=== PATIENT | female | born 1930 | race African-American/Black ===

== ENCOUNTER 2016-08-23 15:22 | Inpatient (IN) | payer MEDICARE, MEDICAID ==
[~2016-08-23] VITALS: Ht 162.6 cm; Wt 72.6 kg
[~2016-08-23 15:22] MED LIST: AMLODIPINE BESY10 MG ORAL; ASPIR 8181 MG ORAL; ENALAPRIL MALEA10 MG ORAL; HYDRALAZINE HCL25 M1 ORAL
[2016-08-23 16:27] LABS: BASOPHILS % (AUTO) 0.4 % (0.0-2.0); EOSINOPHILS % (AUTO) 0.2 % (0.0-3.0); LYMPHOCYTES % (AUTO) 33.6 % (20.0-45.0); MEAN CORPUSCULAR HEMOGLOBIN 30.8 PG (27.0-31.0); MEAN CORPUSCULAR VOLUME 93 FL (80-99); MEAN PLATELET VOLUME 7.2 FL (6.5-10.1); MONOCYTES % (AUTO) 7.7 % (1.0-10.0); NEUTROPHILS % (AUTO) 58.1 % (45.0-75.0); PLATELET COUNT 113 K/UL (150-450); RED BLOOD COUNT 3.79 M/UL (4.20-5.40); RED CELL DISTRIBUTION WIDTH 14.9 % (11.6-14.8); WHITE BLOOD COUNT 5.1 K/UL (4.8-10.8)
[2016-08-23 16:27] LABS: APPEARANCE,URINE CLEAR; KETONES,URINE NEGATIVE (NEGATIVE); LEUKOCYTE ESTERASE ,URINE NEGATIVE (NEGATIVE); NITRITE,URINE NEGATIVE (NEGATIVE); PH,URINE 8 (4.5-8.0); PROTEIN,URINE NEGATIVE (NEGATIVE); UROBILINOGEN,URINE NORMAL MG/DL (0.0-1.0)
[2016-08-23 16:36] LABS: TROPONIN I < 0.30 ng/mL (<=0.30)
[2016-08-23 16:37] LABS: ALANINE AMINOTRANSFERASE 21 U/L (3-33); ALBUMIN/GLOBULIN RATIO 1.2 (1.0-2.7); ANION GAP 11 (5-15); ASPARTATE AMINO TRANSFERASE 26 U/L (5-40); CARBON DIOXIDE 30 mEQ/L (20-30); CHLORIDE 103 mEQ/L (98-107); CREATININE 1.1 mg/dL (0.5-0.9); HEMOLYSIS 5; POTASSIUM 5.4 mEQ/L (3.4-4.9); SODIUM 144 mEQ/L (135-145); TOTAL PROTEIN 7.5 g/dL (6.6-8.7)
[2016-08-23 16:45] VITALS: BP 145/60
[2016-08-23 16:46] LABS: CKMB 3.8 ng/mL (< 3.8)
[2016-08-23] MEDS ORDERED: Sodium Polystyrene Sulfonate 15gm Powder ORAL ONE (17:30)
[2016-08-23 18:36] VITALS: BP 133/61
--- NOTE | 2016-08-23 19:19 | Emergency Room Report ---
History of Present Illness General Chief Complaint: Generalized Weakness Source: Family Member Present Illness HPI 78-year-old female presents to ED for evaluation. Daughter is at bedside. States that patient has been feeling more lethargic and weak for the last 2 days. Patient was having episodes of shaking. Normally very active and energetic. Patient was seen at PMD office today and blood work was drawn. After taking patient home patient had no other episode of shaking and became lethargic. So.her brought patient to emergency room. Upon arrival state patient does seem more awake. Patient has history of dementia. No reported fevers or chills. no reported chest pain or shortness of breath. No other reported aggravating relieving factors. No other associated symptoms Allergies: Coded Allergies: No Known Allergies (Verified , 08/15/11) Patient History Past Medical History: DM, HTN, dementia Past Surgical History: none Pertinent Family History: none Social History: Denies: alcohol use, drug use, smoking Now: No Immunizations: UTD Reviewed Nursing Documentation: PMH: Agreed, PSxH: Agreed Nursing Documentation-PMH Hx Cardiac Problems: Yes Hx Hypertension: Yes Hx Diabetes: Yes - per daughter, have problems with high and low blood sugar Hx Cancer: No Hx Gastrointestinal Problems: Yes Hx Neurological Problems: Yes Hx Dementia: Yes Review of Systems All Other Systems: negative except mentioned in HPI Physical Exam Vital Signs Date Time Temp Pulse Resp B/P Pulse Ox O2 Delivery O2 Flow Rate FiO2 08/23/16 15:41 68 19 148/62 97 Room Air 08/23/16 16:45 92.5 Sp02 EP Interpretation: reviewed, normal General Appearance: GCS 15, non-toxic, lethargic, thin Head: normocephalic, atraumatic Eyes: bilateral eye PERRL, bilateral eye normal inspection ENT: hearing grossly normal, normal pharynx, no angioedema, normal voice Neck: full range of motion, supple/symm/no masses Respiratory: chest non-tender, lungs clear, normal breath sounds, speaking full sentences Cardiovascular #1: regular rate, rhythm, no edema Cardiovascular #2: 2+ carotid (R), 2+ carotid (L), 2+ radial (R), 2+ radial (L) , 2+ dorsalis pedis (R), 2+ dorsalis pedis (L) Gastrointestinal: normal bowel sounds, non tender, soft, non-distended, no guarding, no rebound Rectal: deferred Genitourinary: normal inspection, no CVA tenderness Musculoskeletal: back normal, gait/station normal, normal range of motion, non- tender, calf tenderness Neurologic: alert, motor strength/tone normal, sensory intact, speech normal, other - lethargic Psychiatric: other - lethargic Reflexes: 3+ bicep (R), 3+ bicep (L), 3+ tricep (R), 3+ tricep (L), 3+ knee (R) , 3+ knee (L) Skin: normal color, no rash, warm/dry, well hydrated Lymphatic: no adenopathy Medical Decision Making Diagnostic Impression: Primary Impression: Altered level of consciousness ER Course Hospital Course 86-year-old female presents ED with ALOC, shaking and tremors Differential diagnoses include: [place]/unstable angina, arrythmia, dehydration, CVA/ TIA, sepsis Clinical course Patient placed on 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 After initial history and physical I ordered labs, EKG, chest x-ray, IVFs, CT Brain labs reviewed- no leukocytosis, hemoglobin/hematocrit ok, K 5.4, troponins negative, UA negative EKG- NSR, no ischemic changes Chest x-ray- no acute process CT brain-unremarkable given kayexelate. Case discussed with Dr. Wyatt and he agreed to accept the patient to his service for further care and support I. I feel this is a highly complex case requiring extensive working including EKG/Rhythm strip, Xray/CT/US, Blood/urine lab work, repeat exams while in ED, and administration of strong opiates/narcotics for pain control, admission to hospital or close patient follow up. Diagnosis - ALOC admitted to floor in serious condition Labs Test 08/23/16 15:50 08/23/16 16:19 White Blood Count 5.1 K/UL (4.8-10.8) Red Blood Count 3.79 M/UL (4.20-5.40) Hemoglobin 11.7 G/DL (12.0-16.0) Hematocrit 35.4 % (37.0-47.0) Mean Corpuscular Volume 93 FL (80-99) Mean Corpuscular Hemoglobin 30.8 PG (27.0-31.0) Mean Corpuscular Hemoglobin Concent 33.0 G/DL (32.0-36.0) Red Cell Distribution Width 14.9 % (11.6-14.8) Platelet Count 113 K/UL (150-450) Mean Platelet Volume 7.2 FL (6.5-10.1) Neutrophils (%) (Auto) 58.1 % (45.0-75.0) Lymphocytes (%) (Auto) 33.6 % (20.0-45.0) Monocytes (%) (Auto) 7.7 % (1.0-10.0) Eosinophils (%) (Auto) 0.2 % (0.0-3.0) Basophils (%) (Auto) 0.4 % (0.0-2.0) Sodium Level 144 mEQ/L (135-145) Potassium Level 5.4 mEQ/L (3.4-4.9) Chloride Level 103 mEQ/L (98-107) Carbon Dioxide Level 30 mEQ/L (20-30) Anion Gap 11 (5-15) Blood Urea Nitrogen 36 mg/dL (7-23) Creatinine 1.1 mg/dL (0.5-0.9) Estimat Glomerular Filtration Rate mL/min (>60) Glucose Level 81 mg/dL (74-106) Lactic Acid Level 0.70 mmol/L (0.66-2.22) Calcium Level 10.0 mg/dL (8.6-10.2) Total Bilirubin 0.2 mg/dL (0.0-1.2) Aspartate Amino Transf (AST/SGOT) 26 U/L (5-40) Alanine Aminotransferase (ALT/SGPT) 21 U/L (3-33) Alkaline Phosphatase 87 U/L (35-104) Total Creatine Kinase 47 U/L (26-140) Creatine Kinase MB 3.8 ng/mL (< 3.8) Creatine Kinase MB Relative Index 8.0 Troponin I < 0.30 ng/mL (<=0.30) Total Protein 7.5 g/dL (6.6-8.7) Albumin 4.1 g/dL (3.5-5.2) Globulin 3.4 g/dL Albumin/Globulin Ratio 1.2 (1.0-2.7) Urine Color Yellow Urine Appearance Clear Urine pH 8 (4.5-8.0) Urine Specific [place] 1.010 (1.005-1.035) Urine Protein Negative (NEGATIVE) Urine Glucose (UA) Negative (NEGATIVE) Urine Ketones Negative (NEGATIVE) Urine Occult Blood Negative (NEGATIVE) Urine Nitrite Negative (NEGATIVE) Urine Bilirubin Negative (NEGATIVE) Urine Urobilinogen Normal MG/DL (0.0-1.0) Urine Leukocyte Esterase Negative (NEGATIVE) EKG Diagnostic Results Rate: normal Rhythm: NSR ST Segments: no acute changes ASA given to the pt in ED: No Rhythm Strip Diag. Results EP Interpretation: yes Rhythm: NSR, no PVC's, no ectopy Chest X-Ray Diagnostic Results EP Interpretation: Yes Findings: no consolidation, no effusion, no pneumothorax, no acute cardiopulmonary disease Number of Views: 1 CT/MRI/US Diagnostic Results CT/MRI/US Diagnostic Results : Imaging Test Ordered: CT head Impression no acute process Last Vital Signs Date Time Temp Pulse Resp B/P Pulse Ox O2 Delivery O2 Flow Rate FiO2 08/23/16 18:39 93.7 65 16 133/61 100 Room Air Status: improved Disposition: ADMITTED INPATIENT Condition: Serious Referrals: MARY ALICE WYATT (PCP) SEN SELBY M.D. Aug 23, 2016 19:19
[2016-08-23] MEDS ORDERED: Potassium Chloride 10 MEQ in D5 1/2NS 1,000 ML IV SCH (23:45)
[2016-08-24] VITALS: BP 121/66
--- NOTE | 2016-08-24 00:08 | Consultation ---
DATE OF CONSULTATION: 08/23/2016 CARDIOLOGY CONSULTATION: CONSULTING PHYSICIAN: Ravin Gilbert M.D. REQUESTING PHYSICIAN: Ion Yen M.D. REASON FOR CONSULTATION: Heart block. HISTORY OF PRESENT ILLNESS: This is an 86-year-old female, who was brought into the emergency room today after several days of worsening weakness and lethargy, episodic shaking, and labile blood glucose levels. The patient was seen at her PMD's office today and had blood work drawn. Her symptoms worsened and she was brought to the emergency room, where she was noticed to be severely hypothermic. She was admitted to the cardiac observation unit and subsequently had episodes of advanced heart block prompting staff to ask my benefits assistant with further management. PAST MEDICAL HISTORY: Type 2 diabetes mellitus, hypertension, cerebrovascular disease, and dementia. MEDICATIONS: Reviewed and reconciled. ALLERGIES: None known. FAMILY HISTORY: Noncontributory. SOCIAL HISTORY: Nonsmoker. No history of alcohol or substance abuse. REVIEW OF SYSTEMS: From the daughter and the records as follows. No fevers. No cough. No diarrhea. No nausea or vomiting. History of thyroid impairment. No history of seizures. She does have dementia. Her appetite has been quite poor . PHYSICAL EXAMINATION: GENERAL: Thin, frail, and withdrawn, but arousable. VITAL SIGNS: Temperature is 92.5 degrees, blood pressure 145/60, pulse 67, respiratory rate 14, and monitored strips with episodes of heart rates in the 30s and second-degree AV block progressing from [place]encke[place] . HEENT: Temporal wasting. Pale conjunctivae. Dry mucous membranes. NECK: Supple. LUNGS: Clear. CARDIAC: Regular rhythm. Slow rate. Normal S1 and S2. No appreciable murmur. ABDOMEN: Soft and nontender. EXTREMITIES: No edema. LABORATORY DATA: Urinalysis with no active sediment. White count is 5 and hemoglobin 11. Sodium is 144, potassium 5.4, bicarbonate 30, BUN 33, and creatinine 1.1. Lactic acid is 0.7. Troponin is negative and glucose 81. Albumin is 4.1. IMPRESSION: 1. Hypothermia. 2. Advanced heart block as described above. 3. Prerenal azotemia with acute on chronic renal insufficiency. 4. Mild hyperkalemia. 5. Mild dehydration and hypovolemia. 6. Anemia. PLAN: 1. Warming measures. 2. Cardiac monitoring. 3. Hold amlodipine. 4. Hydrate with hypotonic fluids. 5. Surveillance blood cultures. 6. Thyroid panel. 7. Cortisol level. 8. Metabolic profile. Ravin Gilbert M.D. DR: Jorge Luis JOB#: [id number] CC:
[2016-08-24] MEDS ORDERED: HydrALAZINE 25mg tab ORAL PRN (00:32)
[2016-08-24] MEDS: D5 1/2NS 1,000 ML IV SCH ×3 (00:50→16:48)
--- NOTE | 2016-08-24 01:48 | History and Physical Report ---
DATE OF ADMISSION: 08/23/2016 REASON FOR ADMISSION: Altered mental status. Possible seizure activity. HISTORY: The patient is an 86-year-old female with generalized weakness, overall with increasing restlessness. The patient's daughter had brought her in for laboratory work and urinary evaluation, although results were just done today the patient has been a little more lethargic for the past 2 days and also appeared to be a shaking episode. She is confused, but does have dementia. The patient apparently became more lethargic, more altered, and was brought into the emergency room, the daughter had brought her in a private car. No other associated symptoms. The patient is seen and evaluated in the emergency room. Workup thus far is fairly good. The patient has been fairly healthy overall. She has had routine followup and had been overall stable. PAST MEDICAL HISTORY: Notable for diabetes, hypertension, dementia. PAST SURGICAL HISTORY: None. FAMILY HISTORY: Otherwise noncontributory. SOCIAL HISTORY: Nonsmoker and nondrinker. Retired, unemployed, disabled. Lives with daughter who is the primary caregiver. REVIEW OF SYSTEMS: Difficult to obtain at this time. PHYSICAL EXAMINATION: Well-developed female appears to be slightly more withdrawn than prior VITAL SIGNS: Blood pressure 123/61, pulse 65, respirations 16, saturation 100%, temperature 93.7 HEENT: Fairly negative. Extraocular movements are grossly intact. Pupils are equal. NECK: Supple. No adenopathy. LUNGS: Good air entry. Symmetric. No rhonchi or wheezing. CARDIAC: S1 and S2. Regular rate and rhythm. Positive S4. No murmurs or rubs. ABDOMEN: Soft, nontender, and nondistended. EXTREMITIES: No cyanosis, clubbing or edema. NEUROLOGICAL: Appears to be grossly nonfocal. LABORATORY DATA: Reviewed. hematocrit 35, platelets of 113,000. Chemistries notable for potassium 5.4, BUN 36, creatinine 1.1. Liver enzymes are fairly normal. IMPRESSION: [id number] encephalopathy. Known history of dementia. Consider occult urinary tract infection, evidence of acute renal failure with evidence of hypokalemia and thrombocytopenia of unclear etiology. Possible seizure like activity. Unclear at this time. RECOMMENDATIONS: Admit. IV hydration. Follow up electrolytes. Follow up potassium. PT evaluation. Neurologic evaluation. Consider further assessment by MRI, CT of the brain was unremarkable. chest x-ray unremarkable. We will obtain neurological evaluation. Admit for monitoring and discuss with daughter and update and once we are through we will proceed with discharge planning. Srini Wyatt M.D. DR: IWONA JOB#: [id number] CC: PETER
[2016-08-24 04:00] VITALS: BP 122/61
[2016-08-24 07:08] LABS: BASOPHILS % (AUTO) 0.4 % (0.0-2.0); EOSINOPHILS % (AUTO) 0.1 % (0.0-3.0); LYMPHOCYTES % (AUTO) 18.2 % (20.0-45.0); MEAN CORPUSCULAR HEMOGLOBIN 29.8 PG (27.0-31.0); MEAN CORPUSCULAR HGB CONC 31.5 G/DL (32.0-36.0); MEAN CORPUSCULAR VOLUME 95 FL (80-99); MEAN PLATELET VOLUME 8.6 FL (6.5-10.1); MONOCYTES % (AUTO) 9.3 % (1.0-10.0); NEUTROPHILS % (AUTO) 71.9 % (45.0-75.0); PLATELET COUNT 117 K/UL (150-450); RED CELL DISTRIBUTION WIDTH 15.5 % (11.6-14.8)
[2016-08-24 07:45] LABS: ANION GAP 11 (5-15); CALCIUM 9.1 mg/dL (8.6-10.2); CARBON DIOXIDE 28 mEQ/L (20-30); CHLORIDE 106 mEQ/L (98-107); CREATININE 1.1 mg/dL (0.5-0.9); HEMOLYSIS 4; POTASSIUM 5.2 mEQ/L (3.4-4.9); SODIUM 145 mEQ/L (135-145)
--- NOTE | 2016-08-24 08:45 | Diagnostic Imaging Report ---
Indication: Altered mental status Technique: spiral acquisitions obtained through the brain. Angled axial and coronal 5 x 5 mm slices were reconstructed. No IV contrast utilized. Radiation dose was minimized using automated exposure control Total dose length product 1393 mGycm. CTDIvol(s) 70 mGy Comparison: 08/15/2011 FINDINGS: No acute hemorrhage or edema. No mass effect or midline shift. There is age-related enlargement of the ventricles and extra axial CSF spaces. There is periventricular deep white matter ischemic change. Normal adamson-white differentiation. There is a lacunar infarct in the left basal ganglia region again demonstrated. Visualized orbits are unremarkable. Visualized sinuses are unremarkable. Intact calvarium. No significant interim change. Empty sella described on recent MRI report is not evident on CT IMPRESSION: Chronic and age-related changes. Negative for acute intracranial bleed or mass effect This agrees with the preliminary interpretation provided overnight by Dr. De Santiago The CT scanner at [facility] is accredited by the [employer] and the scans are performed using protocols designed to limit radiation exposure to as low as reasonably achievable to attain images of sufficient resolution adequate for diagnostic evaluation
[2016-08-24] MEDS: Aspirin Baby 81mg ORAL SCH (09:00)
[2016-08-24] MEDS ORDERED: HydrALAZINE 25mg tab ORAL SCH (09:00)
[2016-08-24] MEDS ORDERED: LORazepam Inj 2mg/ml 1ml IV ONE (09:00)
--- NOTE | 2016-08-24 09:10 | General Progress Note ---
Assessment/Plan Assessment/Plan IMPRESSION: Xfxew-cx-[id number] encephalopathy. Known history of dementia. Consider occult urinary tract infection, evidence of acute renal failure with evidence of hypokalemia and thrombocytopenia of unclear etiology. Possible seizure like activity. hyperkalemia PLAN care noted follow up BMP Neuro and cards evaluation IV hydration follow up cultures PT and OT check MRI will monitor for change and stablization impression, plan, and exam edited and reviewed in detail care discussed with RN Subjective Allergies: Coded Allergies: No Known Allergies (Verified , 08/15/11) Subjective events overnight noted had been bradycardic Objective Last 24 Hour Vital Signs Date Time Temp Pulse Resp B/P Pulse Ox O2 Delivery O2 Flow Rate FiO2 08/24/16 04:00 99.0 90 20 122/61 95 Room Air 08/24/16 04:00 89 08/24/16 00:00 96.0 60 18 121/66 98 Room Air 08/24/16 00:00 53 08/23/16 20:00 68 08/23/16 18:39 93.7 65 16 133/61 100 Room Air 08/23/16 18:36 93.7 65 16 133/61 100 Room Air 08/23/16 16:45 92.5 67 14 145/60 98 Room Air 08/23/16 15:41 68 19 148/62 97 Room Air Intake and Output 08/23/16 08/24/16 19:00 07:00 Intake Total 2060 ml 850 ml Output Total 550 ml 1000 ml Balance 1510 ml -150 ml Intake Oral 60 ml IV Total 1000 ml 850 ml Other 1000 ml Output Urine Total 550 ml 1000 ml Laboratory Tests 08/23/16 15:50: White Blood Count 5.1, Red Blood Count 3.79L, Hemoglobin 11.7L, Hematocrit 35.4L , Mean Corpuscular Volume 93, Mean Corpuscular Hemoglobin 30.8, Mean Corpuscular Hemoglobin Concent 33.0, Red Cell Distribution Width 14.9H, Platelet Count 113L, Mean Platelet Volume 7.2, Neutrophils (%) (Auto) 58.1, Lymphocytes (%) (Auto) 33.6, Monocytes (%) (Auto) 7.7, Eosinophils (%) (Auto) 0.2, Basophils (%) (Auto) 0.4, Sodium Level 144, Potassium Level 5.4H, Chloride Level 103, Carbon Dioxide Level 30, Anion Gap 11, Blood Urea Nitrogen 36H, Creatinine 1.1H, Estimat Glomerular Filtration Rate , Glucose Level 81, Lactic Acid Level 0.70, Calcium Level 10.0, Total Bilirubin 0.2, Aspartate Amino Transf (AST/SGOT) 26, Alanine Aminotransferase (ALT/SGPT) 21, Alkaline Phosphatase 87, Total Creatine Kinase 47, Creatine Kinase MB 3.8, Creatine Kinase MB Relative Index 8.0, Troponin I < 0.30, Total Protein 7.5, Albumin 4.1 , Globulin 3.4, Albumin/Globulin Ratio 1.2 08/23/16 16:19: Urine Color Yellow, Urine Appearance Clear, Urine pH 8, Urine Specific [place] 1.010, Urine Protein Negative, Urine Glucose (UA) Negative, Urine Ketones Negative, Urine Occult Blood Negative, Urine Nitrite Negative, Urine Bilirubin Negative, Urine Urobilinogen Normal, Urine Leukocyte Esterase Negative 08/24/16 05:25: White Blood Count 5.0, Red Blood Count 3.40L, Hemoglobin 10.1L, Hematocrit 32.1L , Mean Corpuscular Volume 95, Mean Corpuscular Hemoglobin 29.8, Mean Corpuscular Hemoglobin Concent 31.5L, Red Cell Distribution Width 15.5H, Platelet Count 117L, Mean Platelet Volume 8.6, Neutrophils (%) (Auto) 71.9, Lymphocytes (%) (Auto) 18.2L, Monocytes (%) (Auto) 9.3, Eosinophils (%) (Auto) 0.1, Basophils (%) (Auto) 0.4, Sodium Level 145, Potassium Level 5.2H, Chloride Level 106, Carbon Dioxide Level 28, Anion Gap 11, Blood Urea Nitrogen 32H, Creatinine 1.1H, Estimat Glomerular Filtration Rate , Glucose Level 84, Calcium Level 9.1, Vitamin B12 Level 859, Folate [Pending], Thyroid Stimulating Hormone (TSH) 2.650, Cortisol [Pending] Height (Feet): 5 Height (Inches): 4.00 Weight (Pounds): 160 Objective PHYSICAL EXAMINATION: Well-developed female agitated HEENT: Fairly negative. Extraocular movements are grossly intact. Pupils are equal. NECK: Supple. No adenopathy. LUNGS: Good air entry. Symmetric. No rhonchi or wheezing. CARDIAC: S1 and S2. Regular rhythm. Positive S4. No murmurs or rubs. slightly bradycardic ABDOMEN: Soft, nontender, and nondistended. no HSM EXTREMITIES: No cyanosis, clubbing or edema. NEUROLOGICAL: Appears to be grossly nonfocal. but confused MARY ALICE ESPINO Aug 24, 2016 09:10
[2016-08-24] MEDS: Heparin 5000 units/ml inj SUBQ SCH ×2 (09:58→20:17)
--- NOTE | 2016-08-24 10:04 | Diagnostic Imaging Report ---
Indication: Altered mental status Technique: One view of the chest Comparison: 07/05/2016 Findings: Lungs and pleural spaces are clear. Heart size is normal. Aorta is tortuous Impression: No acute process This agrees with the preliminary interpretation provided by the emergency room physician
--- NOTE | 2016-08-24 10:21 | Neurology Progress Note ---
Objective Physical Exam Last Vital Signs Date Time Temp Pulse Resp B/P Pulse Ox O2 Delivery O2 Flow Rate FiO2 08/24/16 08:00 79 08/24/16 04:00 99.0 20 122/61 95 Room Air Laboratory Tests Test 08/23/16 15:50 08/23/16 16:19 08/24/16 05:25 White Blood Count 5.1 K/UL (4.8-10.8) 5.0 K/UL (4.8-10.8) Red Blood Count 3.79 M/UL (4.20-5.40) L 3.40 M/UL (4.20-5.40) L Hemoglobin 11.7 G/DL (12.0-16.0) L 10.1 G/DL (12.0-16.0) L Hematocrit 35.4 % (37.0-47.0) L 32.1 % (37.0-47.0) L Mean Corpuscular Volume 93 FL (80-99) 95 FL (80-99) Mean Corpuscular Hemoglobin 30.8 PG (27.0-31.0) 29.8 PG (27.0-31.0) Mean Corpuscular Hemoglobin Concent 33.0 G/DL (32.0-36.0) 31.5 G/DL (32.0-36.0) L Red Cell Distribution Width 14.9 % (11.6-14.8) H 15.5 % (11.6-14.8) H Platelet Count 113 K/UL (150-450) L 117 K/UL (150-450) L Mean Platelet Volume 7.2 FL (6.5-10.1) 8.6 FL (6.5-10.1) Neutrophils (%) (Auto) 58.1 % (45.0-75.0) 71.9 % (45.0-75.0) Lymphocytes (%) (Auto) 33.6 % (20.0-45.0) 18.2 % (20.0-45.0) L Monocytes (%) (Auto) 7.7 % (1.0-10.0) 9.3 % (1.0-10.0) Eosinophils (%) (Auto) 0.2 % (0.0-3.0) 0.1 % (0.0-3.0) Basophils (%) (Auto) 0.4 % (0.0-2.0) 0.4 % (0.0-2.0) Sodium Level 144 mEQ/L (135-145) 145 mEQ/L (135-145) Potassium Level 5.4 mEQ/L (3.4-4.9) H 5.2 mEQ/L (3.4-4.9) H Chloride Level 103 mEQ/L (98-107) 106 mEQ/L (98-107) Carbon Dioxide Level 30 mEQ/L (20-30) 28 mEQ/L (20-30) Anion Gap 11 (5-15) 11 (5-15) Blood Urea Nitrogen 36 mg/dL (7-23) H 32 mg/dL (7-23) H Creatinine 1.1 mg/dL (0.5-0.9) H 1.1 mg/dL (0.5-0.9) H Estimat Glomerular Filtration Rate mL/min (>60) mL/min (>60) Glucose Level 81 mg/dL (74-106) 84 mg/dL (74-106) Lactic Acid Level 0.70 mmol/L (0.66-2.22) Calcium Level 10.0 mg/dL (8.6-10.2) 9.1 mg/dL (8.6-10.2) Total Bilirubin 0.2 mg/dL (0.0-1.2) Aspartate Amino Transf (AST/SGOT) 26 U/L (5-40) Alanine Aminotransferase (ALT/SGPT) 21 U/L (3-33) Alkaline Phosphatase 87 U/L (35-104) Total Creatine Kinase 47 U/L (26-140) Creatine Kinase MB 3.8 ng/mL (< 3.8) Creatine Kinase MB Relative Index 8.0 Troponin I < 0.30 ng/mL (<=0.30) Total Protein 7.5 g/dL (6.6-8.7) Albumin 4.1 g/dL (3.5-5.2) Globulin 3.4 g/dL Albumin/Globulin Ratio 1.2 (1.0-2.7) Urine Color Yellow Urine Appearance Clear Urine pH 8 (4.5-8.0) Urine Specific [place] 1.010 (1.005-1.035) Urine Protein Negative (NEGATIVE) Urine Glucose (UA) Negative (NEGATIVE) Urine Ketones Negative (NEGATIVE) Urine Occult Blood Negative (NEGATIVE) Urine Nitrite Negative (NEGATIVE) Urine Bilirubin Negative (NEGATIVE) Urine Urobilinogen Normal MG/DL (0.0-1.0) Urine Leukocyte Esterase Negative (NEGATIVE) Vitamin B12 Level 859 pg/mL (211-946) Folate Pending Thyroid Stimulating Hormone (TSH) 2.650 uIU/mL (0.300-4.500) Cortisol Pending Impression/Recommendations Problems: (1) r/o seizure activity Recommendations # [id number] OLEGARIO BAUMAN Aug 24, 2016 10:21
[2016-08-24 10:30] VITALS: BP 142/65
--- NOTE | 2016-08-24 10:49 | Diagnostic Imaging Report ---
Indication: Altered mental status Technique: sagittal T1 FLAIR PROPELLER axial T2 FLAIR PROPELLER axial diffusion weighted images. ADC and exponential ADC maps generated Comparison: CT brain 08/23/2016, MRI dated 08/06/2015 Findings:Exam is very limited. Patient unable to stay still despite sedation, only 3 sequences could be acquired. Available images are limited by motion artifact No abnormal areas of restricted diffusion to suggest acute infarction, although evaluation of the left temporal lobe is limited due to motion artifact. No gross acute hemorrhage or edema. No mass effect nor midline shift. There is age-related enlargement of the ventricles and extra axial CSF spaces. Visualized orbits and sinuses are unremarkable. Impression: Very limited, essentially nondiagnostic exam, as described No gross acute intracranial bleed, mass effect, or infarct Age-related cerebral volume loss, also previously reported
[2016-08-24 12:00] VITALS: BP 140/62
[2016-08-24 16:00] VITALS: BP 152/72
--- NOTE | 2016-08-24 16:48 | Consultation ---
DATE OF CONSULTATION: 08/24/2016 NEUROLOGICAL CONSULTATION CONSULTING PHYSICIAN: Ihsan Muñoz M.D. REQUESTING PHYSICIAN: Sirni Wyatt M.D. HISTORY OF PRESENT ILLNESS: The patient is an 86-year-old female, seen in neurological consultation with new onset of changes in mental status as well as episodes of generalized tremors. The patient was brought from home where for the last couple of days, she was increasingly lethargic with generalized weakness and episodes of shaking. It was reported that prior to current events, the patient was actually quite active and "energetic." The patient was brought to emergency room, noticed she was more awake than previously. Her vital signs included blood pressure is 148/62 and temperature 92.5 degrees, and heart rate of 68. The [place] Coma Scale was 15. Her initial vital signs remained stable with hypothermia and heart rate of 153. Laboratory work was obtained, revealed CBC study with hemoglobin 11.7, hematocrit 35.4, and platelets 113,000. Chemistry panel with BUN of 36, creatinine 1.1, and potassium 5.4. Normal B12, TSH, and troponin. Normal calcium level and lactic acid. Urinalysis was negative. Imaging studies were obtained revealing no acute process. CT scan of the brain, chronic age related changes, but no acute event, no mass effect, and no midline shift. This study was compared with the previous from 2011 with no changes noted. Since admission to present, her condition remained unchanged. PAST MEDICAL HISTORY: The patient has a history of hypertension and poorly controlled diabetes with fluctuating blood sugars. MEDICATIONS: She is on hydralazine, enalapril, aspirin, and amlodipine. ALLERGIES: None reported. The patient has a history of dementia. SOCIAL HISTORY: Lives with her family. There is no evidence of alcohol or drug abuse. Nonsmoker. FAMILY HISTORY: Noncontributory. REVIEW OF SYSTEMS: Unable to obtain due the patient's status, who is now very lethargic. PHYSICAL EXAMINATION: GENERAL: A well-developed, well-nourished female, lying comfortably in bed asleep. She was recently sedated with Ativan prior to having MRI of the brain. VITAL SIGNS: Now stable. Temperature 99.0 and blood pressure 122/61. HEENT: Head is normocephalic. No evidence of trauma. Eyes, ears, and throat are clear. NECK: Slightly rigid in all directions. MUSCULOSKELETAL: Puffiness in both lower extremities and both ankles. PERIPHERAL PULSES: 1+ and symmetric. MENTAL STATUS: The patient is arousable on vigorous stimulation, briefly opens eyes, able to follow few simple commands, but responding very slow and deliberate. CRANIAL NERVES: Cranial Nerve II: Pupils both responding to light and accommodation. Extraocular movements full range. CRANIAL NERVE V: Normal corneal responses. CRANIAL NERVE VII: No facial asymmetry. CRANIAL NERVE VIII: Slight decrease in hearing. CRANIAL NERVE IX THROUGH XII: Tongue is midline. Symmetric palate elevation. Motor Examination: Diffuse rigidity, but able to lift arms and legs against the gravity. Able to proceed with the [id number] testing. DEEP TENDON REFLEXES: 1+ and symmetric. Plantar response is mute. SENSORY EXAMINATION: Withdrawing to pin stimulation all limbs. Gait not tested. The patient was unable sit or stand on her own. IMPRESSION: This is an 86-year-old female with: 1. New onset of lethargic state and intermittent tremors, rule out nonconvulsive status and rule out sepsis. 2. Hypertension. 3. Diabetes type 2. 4. History of senile dementia. RECOMMENDATION: 1. Check MRI of the brain. 2. Electroencephalogram. 3. Observe for any paroxysmal events. 4. Continue aspirin. 5. Check lipid panel, GINI, and sed rate. 6. Continue with proper hydration. Thank you for allowing me to see this interesting patient in neurological consultation. Ihsan Muñoz M.D. DR: Rika JOB#: [id number] CC:
[2016-08-25] VITALS: BP 155/83
[2016-08-25] MEDS: D5 1/2NS 1,000 ML IV SCH ×3 (01:19→16:06)
--- NOTE | 2016-08-25 01:19 | Progress Note ---
DATE: 08/24/2016 CARDIOLOGY PROGRESS NOTE SUBJECTIVE: The patient had second-degree heart block last night. She was hypothermic. She has been on a [employer] heating blanket system since. Monitored rhythm is now sinus with first-degree AV block. No pauses. The patient remains withdrawn and lethargic. OBJECTIVE: VITAL SIGNS: Temperature earlier was 92.5 and now 99 degrees, blood pressure 122/61, pulse 90, respirations 20, and oxygen saturation on room air 95%. GENERAL: Withdrawn but responsive. LUNGS: Bilateral breath sounds. HEART: Regular rhythm and rate. Normal S1, S2. ABDOMEN: Soft. EXTREMITIES: No edema. Diffusely rigid. Follows simple commands only. LABORATORY DATA: White count 5 and hemoglobin 10. Potassium 5.3, BUN 32, and creatinine 1.1. Vitamin B12 and TSH levels were normal. IMPRESSION: 1. Toxic and metabolic encephalopathy. 2. Hypothermia, resolving. 3. Second-degree heart block with at times 2:1 conduction, now resolving. 4. Hypertensive heart disease. 5. Hypovolemia. 6. Dehydration. 7. Prerenal azotemia. PLAN: 1. Continued hydration. 2. Adjust warming blanket as needed. 3. Imaging studies of the brain. 4. Continue to hold most of patient's antihypertensives and resume in a stepwise fashion based on clinical parameters. Ravin Gilbert M.D. DR: ALEJANDRO JOB#: [id number] CC:
[2016-08-25 04:00] VITALS: BP 156/70
[2016-08-25 07:47] LABS: ANION GAP 15 (5-15); CALCIUM 9.5 mg/dL (8.6-10.2); CARBON DIOXIDE 25 mEQ/L (20-30); CHLORIDE 105 mEQ/L (98-107); CREATININE 0.8 mg/dL (0.5-0.9); HEMOLYSIS 6; POTASSIUM 4.1 mEQ/L (3.4-4.9); SODIUM 145 mEQ/L (135-145)
[2016-08-25 08:03] VITALS: BP 147/70
[2016-08-25 08:08] LABS: CORTISOL LC 19.1 ug/dL (.)
[2016-08-25] MEDS: Aspirin Baby 81mg ORAL SCH (08:47)
[2016-08-25] MEDS: Heparin 5000 units/ml inj SUBQ SCH ×2 (08:48→20:24)
[2016-08-25 12:10] VITALS: BP 122/60
--- NOTE | 2016-08-25 16:01 | General Progress Note ---
Assessment/Plan Assessment/Plan IMPRESSION: [id number] encephalopathy. Known history of dementia. Consider occult urinary tract infection, evidence of acute renal failure with evidence of hypokalemia and thrombocytopenia of unclear etiology. Possible seizure like activity. hyperkalemia PLAN care noted follow up labs noted Neuro and cards evaluation noted IV hydration follow up cultures PT and OT reviewed MRI will monitor for change and stablization impression, plan, and exam edited and reviewed in detail care discussed with RN Subjective Allergies: Coded Allergies: No Known Allergies (Verified , 08/15/11) Subjective events overnight noted had been bradycardic no recurrent sz activity all appreciated Objective Last 24 Hour Vital Signs Date Time Temp Pulse Resp B/P Pulse Ox O2 Delivery O2 Flow Rate FiO2 08/25/16 12:10 97.0 60 20 122/60 98 Room Air 08/25/16 08:47 147/70 08/25/16 08:03 97.0 67 20 147/70 98 Room Air 08/25/16 08:00 66 08/25/16 04:00 73 08/25/16 04:00 97.6 71 20 156/70 97 Room Air 08/25/16 00:00 76 08/25/16 00:00 97.0 76 20 155/83 97 Room Air 08/24/16 20:00 70 08/24/16 16:00 65 08/24/16 16:00 96.1 69 18 152/72 97 Room Air Intake and Output 08/24/16 08/25/16 19:00 07:00 Intake Total 807 ml 1287.5 ml Output Total 1200 ml 1400 ml Balance -393 ml -112.5 ml Intake Oral 120 ml IV Total 687 ml 1287.5 ml Output Urine Total 1200 ml 1400 ml Laboratory Tests 08/25/16 05:10: Sodium Level 145, Potassium Level 4.1, Chloride Level 105, Carbon Dioxide Level 25, Anion Gap 15, Blood Urea Nitrogen 15, Creatinine 0.8, Estimat Glomerular Filtration Rate , Glucose Level 96, Calcium Level 9.5 Height (Feet): 5 Height (Inches): 4.00 Weight (Pounds): 160 Objective PHYSICAL EXAMINATION: Well-developed female agitated HEENT: Fairly negative. Extraocular movements are grossly intact. Pupils are equal. NECK: Supple. No adenopathy. LUNGS: Good air entry. Symmetric. No rhonchi or wheezing. CARDIAC: S1 and S2. Regular rhythm. Positive S4. No murmurs or rubs. not bradycardic ABDOMEN: Soft, nontender, and nondistended. no HSM EXTREMITIES: No cyanosis, clubbing or edema. NEUROLOGICAL: Appears to be grossly nonfocal. but confused MARY ALICE ESPINO Aug 25, 2016 16:01
[2016-08-25 16:19] VITALS: BP 142/78
[2016-08-25] MEDS ORDERED: D5 1/2NS 1000ml IV ONE (16:45)
[2016-08-25] MEDS ORDERED: 1/2 NS 1000ml IV ONE (16:45)
[2016-08-25 20:00] VITALS: BP 125/61
[2016-08-26] VITALS: BP 151/71
[2016-08-26] MEDS: D5 1/2NS 1,000 ML IV SCH ×3 (01:00→14:37)
[2016-08-26 04:30] VITALS: BP 153/69
--- NOTE | 2016-08-26 08:01 | General Progress Note ---
Assessment/Plan Assessment/Plan IMPRESSION: Tkazp-[id number]-[id number] encephalopathy. Known history of dementia. cultures negative, evidence of acute renal failure, thrombocytopenia of unclear etiology. Possible seizure like activity. PLAN care noted follow up labs today Neuro and cards evaluation noted IV hydration follow up cultures PT and OT discuss with daughter and proceed with dc planning impression, plan, and exam edited and reviewed in detail care discussed with RN Subjective Allergies: Coded Allergies: No Known Allergies (Verified , 08/15/11) Subjective events overnight noted stable overall no distress Objective Last 24 Hour Vital Signs Date Time Temp Pulse Resp B/P Pulse Ox O2 Delivery O2 Flow Rate FiO2 08/26/16 04:30 97.2 74 20 153/69 94 08/26/16 04:00 76 08/26/16 00:00 79 08/26/16 00:00 97.3 80 20 151/71 99 Room Air 08/25/16 20:00 96.4 64 20 125/61 97 08/25/16 20:00 69 08/25/16 16:19 96.1 68 20 142/78 98 Room Air 08/25/16 16:00 72 08/25/16 12:10 97.0 60 20 122/60 98 Room Air 08/25/16 08:47 147/70 08/25/16 08:03 97.0 67 20 147/70 98 Room Air 08/25/16 08:00 66 Intake and Output 08/25/16 08/26/16 19:00 07:00 Intake Total 1672.5 ml 1550.0 ml Output Total 800 ml 2700 ml Balance 872.5 ml -1150.0 ml Intake Oral 360 ml IV Total 1312.5 ml 1550.0 ml Output Urine Total 800 ml 2700 ml # Bowel Movements 1 Labs Test 08/23/16 15:50 08/23/16 16:19 08/24/16 05:25 08/25/16 05:10 White Blood Count 5.1 K/UL (4.8-10.8) 5.0 K/UL (4.8-10.8) Red Blood Count 3.79 M/UL (4.20-5.40) 3.40 M/UL (4.20-5.40) Hemoglobin 11.7 G/DL (12.0-16.0) 10.1 G/DL (12.0-16.0) Hematocrit 35.4 % (37.0-47.0) 32.1 % (37.0-47.0) Mean Corpuscular Volume 93 FL (80-99) 95 FL (80-99) Mean Corpuscular Hemoglobin 30.8 PG (27.0-31.0) 29.8 PG (27.0-31.0) Mean Corpuscular Hemoglobin Concent 33.0 G/DL (32.0-36.0) 31.5 G/DL (32.0-36.0) Red Cell Distribution Width 14.9 % (11.6-14.8) 15.5 % (11.6-14.8) Platelet Count 113 K/UL (150-450) 117 K/UL (150-450) Mean Platelet Volume 7.2 FL (6.5-10.1) 8.6 FL (6.5-10.1) Neutrophils (%) (Auto) 58.1 % (45.0-75.0) 71.9 % (45.0-75.0) Lymphocytes (%) (Auto) 33.6 % (20.0-45.0) 18.2 % (20.0-45.0) Monocytes (%) (Auto) 7.7 % (1.0-10.0) 9.3 % (1.0-10.0) Eosinophils (%) (Auto) 0.2 % (0.0-3.0) 0.1 % (0.0-3.0) Basophils (%) (Auto) 0.4 % (0.0-2.0) 0.4 % (0.0-2.0) Sodium Level 144 mEQ/L (135-145) 145 mEQ/L (135-145) 145 mEQ/L (135-145) Potassium Level 5.4 mEQ/L (3.4-4.9) 5.2 mEQ/L (3.4-4.9) 4.1 mEQ/L (3.4-4.9) Chloride Level 103 mEQ/L (98-107) 106 mEQ/L (98-107) 105 mEQ/L (98-107) Carbon Dioxide Level 30 mEQ/L (20-30) 28 mEQ/L (20-30) 25 mEQ/L (20-30) Anion Gap 11 (5-15) 11 (5-15) 15 (5-15) Blood Urea Nitrogen 36 mg/dL (7-23) 32 mg/dL (7-23) 15 mg/dL (7-23) Creatinine 1.1 mg/dL (0.5-0.9) 1.1 mg/dL (0.5-0.9) 0.8 mg/dL (0.5-0.9) Estimat Glomerular Filtration Rate mL/min (>60) mL/min (>60) mL/min (>60) Glucose Level 81 mg/dL (74-106) 84 mg/dL (74-106) 96 mg/dL (74-106) Lactic Acid Level 0.70 mmol/L (0.66-2.22) Calcium Level 10.0 mg/dL (8.6-10.2) 9.1 mg/dL (8.6-10.2) 9.5 mg/dL (8.6-10.2) Total Bilirubin 0.2 mg/dL (0.0-1.2) Aspartate Amino Transf (AST/SGOT) 26 U/L (5-40) Alanine Aminotransferase (ALT/SGPT) 21 U/L (3-33) Alkaline Phosphatase 87 U/L (35-104) Total Creatine Kinase 47 U/L (26-140) Creatine Kinase MB 3.8 ng/mL (< 3.8) Creatine Kinase MB Relative Index 8.0 Troponin I < 0.30 ng/mL (<=0.30) Total Protein 7.5 g/dL (6.6-8.7) Albumin 4.1 g/dL (3.5-5.2) Globulin 3.4 g/dL Albumin/Globulin Ratio 1.2 (1.0-2.7) Urine Color Yellow Urine Appearance Clear Urine pH 8 (4.5-8.0) Urine Specific Scott 1.010 (1.005-1.035) Urine Protein Negative (NEGATIVE) Urine Glucose (UA) Negative (NEGATIVE) Urine Ketones Negative (NEGATIVE) Urine Occult Blood Negative (NEGATIVE) Urine Nitrite Negative (NEGATIVE) Urine Bilirubin Negative (NEGATIVE) Urine Urobilinogen Normal MG/DL (0.0-1.0) Urine Leukocyte Esterase Negative (NEGATIVE) Vitamin B12 Level 859 pg/mL (211-946) Folate 18.3 ng/mL (>3.0) Thyroid Stimulating Hormone (TSH) 2.650 uIU/mL (0.300-4.500) Cortisol 19.1 ug/dL (.) Height (Feet): 5 Height (Inches): 4.00 Weight (Pounds): 160 Objective PHYSICAL EXAMINATION: Well-developed female calm confused HEENT: Fairly negative. Extraocular movements are grossly intact. Pupils are equal. NECK: Supple. No adenopathy. LUNGS: Good air entry. Symmetric. No rhonchi or wheezing. CARDIAC: S1 and S2. Regular rhythm. Positive S4. No murmurs or rubs. no longer bradycardic ABDOMEN: Soft, nontender, and nondistended. no HSM EXTREMITIES: No cyanosis, clubbing or edema. NEUROLOGICAL: Appears to be grossly nonfocal. but confused and with some disorientation MARY ALICE ESPINO Aug 26, 2016 08:01
[2016-08-26 08:07] VITALS: BP 158/90
[2016-08-26] MEDS: Aspirin Baby 81mg ORAL SCH (08:38)
[2016-08-26] MEDS: Heparin 5000 units/ml inj SUBQ SCH ×2 (08:39→21:00)
[2016-08-26 09:47] LABS: BASOPHILS % (AUTO) 0.2 % (0.0-2.0); EOSINOPHILS % (AUTO) 0.6 % (0.0-3.0); LYMPHOCYTES % (AUTO) 22.4 % (20.0-45.0); MEAN CORPUSCULAR HEMOGLOBIN 29.7 PG (27.0-31.0); MEAN CORPUSCULAR HGB CONC 31.8 G/DL (32.0-36.0); MEAN CORPUSCULAR VOLUME 94 FL (80-99); MEAN PLATELET VOLUME 7.8 FL (6.5-10.1); MONOCYTES % (AUTO) 10.5 % (1.0-10.0); NEUTROPHILS % (AUTO) 66.2 % (45.0-75.0); PLATELET COUNT 127 K/UL (150-450); RED BLOOD COUNT 3.51 M/UL (4.20-5.40); RED CELL DISTRIBUTION WIDTH 15.3 % (11.6-14.8)
[2016-08-26 10:07] LABS: ANION GAP 15 (5-15); CALCIUM 9.3 mg/dL (8.6-10.2); CARBON DIOXIDE 25 mEQ/L (20-30); CHLORIDE 103 mEQ/L (98-107); CREATININE 0.9 mg/dL (0.5-0.9); HEMOLYSIS 2; POTASSIUM 3.4 mEQ/L (3.4-4.9); SODIUM 143 mEQ/L (135-145)
[2016-08-26 11:29] VITALS: BP 143/70
[2016-08-26 16:32] VITALS: BP 148/86
[2016-08-26 20:00] VITALS: BP 147/67
--- NOTE | 2016-08-26 22:19 | Electroencephalogram ---
DATE OF PROCEDURE: 08/24/2016 ELECTROENCEPHALOGRAPHY REPORT REQUESTING PHYSICIAN: Srini Wyatt M.D. HISTORY: The patient is an 86-year-old female with acute change in mental status, now presenting with intermittent tremors in her upper extremities, suspected to have seizure activities, currently, treated with Vasotec and Norvasc. TECHNIQUE: EEG was done using 18 electrodes placed scalp to scalp, scalp to ear montages according to 10/20 International System. During the recording, the patient described as awake or drowsy, but fairly cooperative. Most wakeful portions of recording, background activity consists of low to medium voltage, somewhat low voltage, mixture of 7-8 cycles per second, alpha activity with intermittent with slower theta range activities. No asymmetry from side to side. No spike or wave activities noted. Tremors noted with no electrographic correlation. As recording progressed, the patient become more drowsy with appearance of persistent bilateral theta range activities 6-8 cycles bilaterally. IMPRESSION: Mildly abnormal electroencephalogram in the presence of diffuse slowing. COMMENT: Absence of paroxysmal activities does not rule out seizure disorder, noticed above abnormality exceeds normal slowing in this age group. This may indicate a toxic or metabolic derangement. Ihsan Muñoz M.D. DR: ALONSO JOB#: [id number] CC:
[2016-08-26] MEDS ORDERED: D5 1/2NS 1000ml IV ONE (22:29)
--- NOTE | 2016-08-26 23:00 | Progress Note ---
DATE: 08/25/2016 Cardiology progress note SUBJECTIVE: The patient remains withdrawn and lethargic. Body temperature now stable at 97. Monitored rhythm sinus with no alberto arrhythmias or AV block noted. OBJECTIVE: VITAL SIGNS: Blood pressure 122/60, pulse 60, and respirations 20. NECK: Supple. Dry mucous membranes. LUNGS: Clear. CARDIAC: Regular rhythm rate. Normal S1 and S2 with a fourth heart sound. ABDOMEN: Soft. EXTREMITIES: Reveal no edema or cords. LABORATORY DATA: The blood cultures remain negative. Sodium 145, potassium 4.1, bicarbonate 25, BUN 15, and creatinine 0.8. IMPRESSION: Hypothermia, recovered. Normal cortisol level is normal. Normal thyroid function. Normal B12 folate levels. Cerebrovascular disease with baseline dementia. Advanced AV block, transient and precipitated by severe hypothermia, now resolved. PLAN: 1. Monitor temperature. Await results of Infectious Disease workup. Maintain adequate hydration. 2. For tighter blood pressure control at this time. 3. DVT prophylaxis. Ravin Gilbert M.D. DR: GABRIEL JOB#: [id number] CC:
--- NOTE | 2016-08-26 23:49 | Progress Note ---
DATE: 08/26/2016 CARDIOLOGY PROGRESS NOTE SUBJECTIVE: Now no acute distress. No events overnight. Monitored rhythm sinus. Temperature maintaining at 96.1 to 97.3. PHYSICAL EXAMINATION: VITAL SIGNS: Blood pressure 152/69, pulse 74, respiratory rate 20. Monitored rhythm, sinus. No alberto arrhythmias. LUNGS: Clear. CARDIAC: Regular. Normal S1 and S2. ABDOMEN: Soft. EXTREMITIES: No edema. LABORATORY DATA: Blood cultures negative up to date. Sodium 143, potassium 3.4, bicarbonate 25, BUN 17, and creatinine 0.9. White count 5, hemoglobin 10.4, and platelets 127, 000. IMPRESSION: 1. Hypothermic, resolved. Advanced AV block, recovered and precipitated by severe hypothermia. 2. Hypertensive heart disease with controlled blood pressure. 3. Anemia of chronic disease. 4. Hypovolemia and dehydration corrected. No signs of fever or sepsis. PLAN: 1. Maintain adequate hydration. 2. Continue with current cardiovascular regimen. 3. DVT prophylaxis. 4. Monitor temperature. No indication for pacemaker. Ravin Gilbert M.D. DR: GABRIEL JOB#: [id number] CC:
[2016-08-27] VITALS: BP 140/73
[2016-08-27] MEDS: D5 1/2NS 1,000 ML IV SCH ×2 (02:00→08:26)
[2016-08-27 04:07] VITALS: BP 141/73
[2016-08-27 08:00] VITALS: BP 152/95
[2016-08-27] MEDS: Aspirin Baby 81mg ORAL SCH (08:16)
[2016-08-27] MEDS: Heparin 5000 units/ml inj SUBQ SCH (08:18)
--- NOTE | 2016-08-27 11:24 | General Progress Note ---
Assessment/Plan Assessment/Plan IMPRESSION: Aikdl-ql-gzyohvd encephalopathy. Known history of dementia. cultures negative, evidence of acute renal failure, thrombocytopenia of unclear etiology. Possible seizure like activity. PLAN care noted follow up labs today Neuro and cards evaluation noted IV hydration may dc follow up cultures negative PT and OT home today with home health impression, plan, and exam edited and reviewed in detail care discussed with RN Subjective Allergies: Coded Allergies: No Known Allergies (Verified , 08/15/11) Subjective events overnight noted sundowns at night Objective Last 24 Hour Vital Signs Date Time Temp Pulse Resp B/P Pulse Ox O2 Delivery O2 Flow Rate FiO2 08/27/16 08:17 152/95 08/27/16 08:00 97.2 79 18 152/95 98 Room Air 08/27/16 08:00 74 08/27/16 04:07 97.7 78 20 141/73 98 Room Air 08/27/16 04:00 67 08/27/16 00:00 97.5 77 20 140/73 100 Room Air 08/27/16 00:00 87 08/26/16 20:00 76 08/26/16 20:00 97.5 76 18 147/67 98 Room Air 08/26/16 18:23 131/64 08/26/16 16:32 97.3 70 18 148/86 97 Room Air 08/26/16 12:00 71 08/26/16 11:29 97.3 74 18 143/70 98 Room Air Intake and Output 08/26/16 08/27/16 19:00 07:00 Intake Total 1235 ml 750 ml Output Total 400 ml 2500 ml Balance 835 ml -1750 ml Intake Oral 360 ml IV Total 875 ml 750 ml Output Urine Total 400 ml 2500 ml # Bowel Movements 1 Height (Feet): 5 Height (Inches): 4.00 Weight (Pounds): 160 Objective PHYSICAL EXAMINATION: Well-developed female calm confused HEENT: Fairly negative. Extraocular movements are grossly intact. Pupils are equal. NECK: Supple. No adenopathy. LUNGS: Good air entry. Symmetric. No rhonchi or wheezing. CARDIAC: S1 and S2. Regular rhythm. Positive S4. No murmurs or rubs. no longer bradycardic ABDOMEN: Soft, nontender, and nondistended. no HSM EXTREMITIES: No cyanosis, clubbing or edema. NEUROLOGICAL: Appears to be grossly nonfocal. but confused and with some disorientation MARY ALICE ESPINO Aug 27, 2016 11:24
[2016-08-27 12:00] VITALS: BP 148/68
--- NOTE | 2016-08-27 12:31 | Cardiology Report ---
APPROVED REPORT EKG Measurement Heart [id number] Sinus rhythm with 1st degree AV block Otherwise normal ECG
--- NOTE | 2016-08-28 00:59 | Progress Note ---
DATE: 08/27/2016 CARDIOLOGY PROGRESS NOTE SUBJECTIVE: The patient is alert, at baseline mentation, and minimally interactive. OBJECTIVE: VITAL SIGNS: Blood pressure 152/95, pulse 79, and respirations 18. Monitored rhythm sinus. LUNGS: Bilateral breath sounds. No wheezing. HEART: Regular rhythm and rate. Normal S1 and S2. ABDOMEN: Soft. EXTREMITIES: No edema. IMPRESSION: 1. Advanced conduction system disease with second-degree arteriovenous block, now recovered with resolution of hypothermia. 2. Hypothermia due to exposure. 3. Cerebrovascular disease with dementia. 4. Hypovolemia and dehydration, corrected. 5. Hypertensive heart disease with adequate blood pressure control. PLAN: 1. Discontinue intravenous fluids. 2. Maintain current cardiovascular regimen. 3. Avoid tighter blood pressure control. 4. Outpatient followup. 5. No role for pacemaker as heart block was secondary to severe hypothermia. Ravin Gilbert M.D. DR: DAPHNE JOB#: [id number] CC:
--- NOTE | 2016-08-28 13:00 | Discharge Summary ---
Discharge Summary Hospital Course Date of Admission Aug 23, 2016 at 18:21 Date of Discharge Aug 27, 2016 at 13:50 Admitting Diagnosis AMS HPI Chelle Perkins is a 86 year old female who was admitted on Aug 23, 2016 at 18: 21 for Altered Mental Status Hospital Course dc summary # [id number] Discharge Medications Continued Medications: Aspirin* (Aspir 81*) 81 Mg Tablet.dr 81 MG ORAL DAILY, TAB Enalapril Maleate* (Enalapril Maleate*) 10 Mg Tablet 10 MG ORAL DAILY, TAB Discharge Condition Upon Discharge: stable Discharge Disposition Patient was discharged to Home with Home Health(06) Discharge Diagnoses: Discharge Instructions Discharge Instructions Special Instructions I have been assigned to complete a D/C Summary on this account. I was not involved in the patient management Sally Jose NP (Vanchtein) Aug 28, 2016 13:00
--- NOTE | 2016-08-29 03:29 | Discharge Summary 2 SIG ---
DATE OF ADMISSION: 08/23/2016 DATE OF DISCHARGE: 08/27/2016 REASON FOR HOSPITALIZATION: 86-year-old female, was brought to the emergency department for evaluation by her daughter. Daughter stated that the patient was feeling more lethargic and weak for the past two days. She was having episodes of shaking. Per daughter, normally, the patient active and energetic. The patient was seen by primary doctor , blood work was done; however, after taking her home, the daughter noted other episodes of shaking , the patient became more lethargic. Thus, the daughter brought the patient to the emergency room for evaluation. The patient has a history of underlying dementia. No reported fever. No chills. No chest pain. No shortness of breath. No abdominal pain, nausea, vomiting, or diarrhea. In the emergency department, the patient presented with altered level of consciousness, shaking, and tremors. The patient was placed on hospital monitor. EKG and chest x-ray were ordered. IV fluids and CT of the brain were ordered as well. EKG revealed normal sinus rhythm. No ischemic changes. Chest x-ray revealed no acute cardiopulmonary pathology. CT of the brain demonstrated no acute intracranial pathology. Labs were reviewed. No leukocytosis. Mild anemia 11.7 and 35.4 and platelets down to 113,000. Troponin negative. Urinalysis negative. Potassium 5.2, Kayexalate given. Noted hypothermia with a temperature of 92.5. Renal parameters reveal BUN of 36 and creatinine of 1.1. The patient was admitted to the monitored floor for further management. ADMITTING DIAGNOSES: 1. Acute encephalopathy. 2. Hyperkalemia. 3. Acute tubular necrosis/prerenal azotemia, likely secondary to dehydration. HOSPITAL STAY: The patient was admitted to the monitor floor. The patient was noted to have a second-degree advanced heart block with in times 2:1 conduction. Cardiology consult was requested. The patient was noted to have bradycardia with heart rate in 30s. At the same time, neurology consult was requested. Per Cardiology, all antihypertensive medications on hold. Warming measures for hypothermia instituted, IV fluids provided. Subsequently, advanced heart block resolved. According to wheel cutter, advanced heart block likely secondary to hypothermia , and there is no need for pacemaker. Neurologist had seen the patient and ordered MRI of the brain, which was negative for any acute intracranial pathology. As mentioned before, CT of the head was negative as well. EEG was done, which revealed mild diffuse slowing consistent with mild encephalopathy. When blood pressure stabilized, Vasotec restarted. At that time, renal parameters down to normal with IV fluid. Acute tubular necrosis, likely due to the prerenal azotemia secondary to dehydration, which resolved with intravenous hydration. Acute encephalopathy likely due to dehydration and possible hypothermia, resolved, at baseline prior to discharge. Blood sugar was managed with usual antiglycemic regimen, and was stable. E Marketing Specialist recommended to resume antihypertensive medication slowly. Upon discharge, only Vasotec was resumed. Follow up with the primary medical doctor in two to three days for further management of antihypertensive medications. Renal parameters down to normal. BUN down to 17 and creatinine down to 0.9. Blood cultures were negative which were done in the emergency room for possible sepsis. The patient has no leukocytosis. No evidence of infection. Chest x-ray was negative. UA negative. The patient was stable for discharge home. Follow up with the primary doctor. DISCHARGE DIAGNOSES: 1. Acute toxic and metabolic encephalopathy on chronic dementia. 2. Hypothermia/resolved. 3. Mild hyperkalemia/resolved. 4. Acute tubular necrosis/prerenal azotemia secondary to dehydration,- resolved. 5. Dehydration,- resolved. 6. Mild anemia, stable. 7. History of hypertension. 8. Diabetes mellitus. 9. Thrombocytopenia, improved ; platelets up to 127,000. DISCHARGE MEDICATIONS: See medication reconciliation list. DISCHARGE INSTRUCTIONS: The patient was discharged home. Follow up with the primary medical doctor in two to three days. Srini Wyatt M.D. I have been assigned to dictate discharge summary on this account and I was not involved in the patient's management. Sally Allanseun N.P. DR: SHARMIN JOB#: [id number] CC: PETRE
== END 2016-08-27 13:50 | disposition home health service (06) | DRG 91 ==
LOC: EDBEDREQ 17:08 → EMR 18:18 → 2E 18:21 → EDBEDREQ 18:26
DX: G92 Toxic encephalopathy (principal); N17.0 Acute kidney failure with tubular necrosis; N39.0 Urinary tract infection, site not specified; R56.9 Unspecified convulsions; I44.1 Atrioventricular block, second degree; D69.6 Thrombocytopenia, unspecified; N18.9 Chronic kidney disease, unspecified; E87.5 Hyperkalemia; F03.90 Unspecified dementia, unspecified severity, without behavioral disturbance, psychotic disturbance, mood disturbance, and anxiety; R68.0 Hypothermia, not associated with low environmental temperature; E86.0 Dehydration; D64.9 Anemia, unspecified; E11.9 Type 2 diabetes mellitus without complications; I10 Essential (primary) hypertension; I11.9 Hypertensive heart disease without heart failure; E86.1 Hypovolemia
CPT/HCPCS: 36415; 70450; 70551; 71010; 80048; 80053; 81003; 82533; 82550; 82553; 82607; 82746; 82962; 83605; 84443; 84484; 85025; 87040; 93005; 95819

== ENCOUNTER 2016-11-15 11:58 | Outpatient (CLI) | payer MEDICARE, MEDICAID ==
--- NOTE | 2016-11-16 12:38 | Diagnostic Imaging Report ---
Indications: Greater than one year history of low back pain Technique: Sagittal STIR, sagittal and axial T1 weighted and T2 weighted fast spin echo sequences of the lumbar spine were performed without IV gadolinium administration. Findings: Comparison: None The L1-2 disc is normal in height and signal. No significant annular bulge/protrusion or marginal osteophyte formation. Facet joints and ligamenta flava hypertrophied.. Spinal canal, lateral recesses normal caliber. Neural foramina mildly narrowed.. The L2-3 disc is normal in height, mildly decreased in signal. Mild circumferential annular bulge.. Facet joints and ligamenta flava hypertrophied.. Spinal canalnarrowed to 9 mm AP diameter. Lateral recesses mildly, neural foramina moderately narrowed.. The L3-4 disc is normal in height, mildly decreased in signal. Mild circumferential annular bulge.. Facet joints and ligamenta flava hypertrophied.. Spinal canalnarrowed to 8 mm AP diameter. Lateral recesses, neural foramina moderately narrowed.. The L4-L5 disc is normal in height, decreased signal. Mild circumferential annular bulge.. Facet joints and ligamenta flava hypertrophied. Spinal canal, lateral recesses normal caliber. Neural foramina mildly narrowed.. The L5-S1 disc is normal in height, mildly decreased in signal. Mild circumferential annular bulge.. Facet joints hypertrophied. No significant ligamentous hypertrophy. Left lateral recess mildly narrowed with left facet medial margin spurring focally abutting descending left S1 nerve root.. Spinal canallateral recesses normal caliber. Neural foramina mildly narrowed.. Spinal cord ends at L1-2. Conus medullaris, cauda equina, remainder of thecal sac contents intrinsically unremarkable. No intradural or extradural masses or fluid collections are demonstrated. The lumbar vertebrae are normal in configuration and marrow signal characteristics , aside from degenerative changes described above. No fracture, lytic destruction, or other acute process is demonstrated. Paraspinous soft tissues are unremarkable. IMPRESSION: Multilevel degenerative disc disease, facet and ligamentous hypertrophy as described in detail level by level above. Mild spinal stenosis, moderate neural foraminal narrowing at L2-3, L3-4 Moderate lateral recess narrowing at L3-4 Focal left lateral recess narrowing at L5-S1, descending left S1 nerve root abutted by facet spur
== END 2016-11-15 14:00 | disposition home or self-care (01) ==
LOC: MRI 11:58
DX: M54.5 Low back pain (principal)
CPT/HCPCS: 72148

== ENCOUNTER 2017-06-20 14:12 | Outpatient (CLI) | payer MEDICARE, MEDICAID ==
--- NOTE | 2017-06-20 15:10 | Diagnostic Imaging Report ---
Indications: Right leg weakness. Left leg weakness Technique: Spiral acquisitions obtained through the brain. Angled axial and coronal 5 x 5 mm slices were reconstructed. Total dose length product 1337 mGycm. CTDI vol(s) 70 mGy. Dose reduction achieved using automated exposure control Comparison: None Findings: There is mild age-related enlargement of the ventricles and extra axial CSF spaces. There is periventricular deep white matter chronic ischemic change. Old lacunar infarcts are seen in the left basal ganglia. No acute hemorrhage or edema. No mass effect or midline shift. Intact calvarium. Visualized orbits and sinuses are unremarkable. Impression: Chronic and age-related changes. Negative for acute intracranial bleed or mass effect The CT scanner at [facility] is accredited by the [employer] and the scans are performed using protocols designed to limit radiation exposure to as low as reasonably achievable to attain images of sufficient resolution adequate for diagnostic evaluation.
[2017-06-21] MEDS ORDERED: DIVALPROEX SOD250 MG PO (12:45)
[2017-06-21] MEDS ORDERED: AMLODIPINE-ATO1 EAC4 ORAL (12:45)
[2017-06-21] MEDS ORDERED: HYDRALAZINE HCL25 M2 PO (12:45)
== END 2017-06-20 16:12 | disposition home or self-care (01) ==
LOC: CAT 14:12
DX: R53.1 Weakness (principal)
CPT/HCPCS: 70450

== ENCOUNTER 2017-06-21 12:16 | Inpatient (IN) | payer MEDICARE, MEDICAID ==
[~2017-06-21] VITALS: Ht 157.5 cm; Wt 74.8 kg
[2017-06-21 12:45] VITALS: BP 119/65
[2017-06-21] MEDS ORDERED: HYDRALAZINE HCL25 M2 PO (12:45)
[2017-06-21] MEDS ORDERED: DIVALPROEX SOD250 MG PO (12:45)
[2017-06-21] MEDS ORDERED: AMLODIPINE-ATO1 EAC4 ORAL (12:45)
[2017-06-21 13:09] LABS: BASOPHILS % (AUTO) 0.6 % (0.0-2.0); LYMPHOCYTES % (AUTO) 29.3 % (20.0-45.0); MEAN CORPUSCULAR HGB CONC 31.9 G/DL (32.0-36.0); MEAN CORPUSCULAR VOLUME 94 FL (80-99); MEAN PLATELET VOLUME 9.2 FL (6.5-10.1); MONOCYTES % (AUTO) 12.7 % (1.0-10.0); NEUTROPHILS % (AUTO) 57.3 % (45.0-75.0); PLATELET COUNT 107 K/UL (150-450); RED BLOOD COUNT 4.04 M/UL (4.20-5.40); RED CELL DISTRIBUTION WIDTH 14.1 % (11.6-14.8); WHITE BLOOD COUNT 4.9 K/UL (4.8-10.8)
[2017-06-21 13:16] LABS: ANION GAP 3 mmol/L (5-15); CALCIUM 9.9 MG/DL (8.5-10.1); CARBON DIOXIDE 32 MMOL/L (21-32); CHLORIDE 105 MMOL/L (98-107); CREATININE 1.3 MG/DL (0.55-1.30); POTASSIUM 4.8 MMOL/L (3.5-5.1); SODIUM 140 MMOL/L (136-145)
[2017-06-21 13:22] LABS: APPEARANCE,URINE CLEAR; KETONES,URINE NEGATIVE (NEGATIVE); LEUKOCYTE ESTERASE ,URINE 1+ (NEGATIVE); NITRITE,URINE NEGATIVE (NEGATIVE); PH,URINE 8 (4.5-8.0); PROTEIN,URINE NEGATIVE (NEGATIVE); UROBILINOGEN,URINE NORMAL MG/DL (0.0-1.0)
[2017-06-21 13:29] LABS: ALANINE AMINOTRANSFERASE 30 U/L (12-78); ALBUMIN/GLOBULIN RATIO 0.7 (1.0-2.7); ASPARTATE AMINO TRANSFERASE 31 U/L (15-37); CKMB 4.4 NG/ML (0.0-3.6); TOTAL PROTEIN 8.1 G/DL (6.4-8.2)
[2017-06-21 13:48] LABS: BACTERIA,URINE OCCASIONAL /HPF; SQUAMOUS EPITHELIAL CELL,UR FEW /LPF (NONE/OCC)
[2017-06-21 14:07] VITALS: BP 133/60
--- NOTE | 2017-06-21 14:34 | Emergency Room Report ---
History of Present Illness General Chief Complaint: Altered Mental Status Source: Family Member, Medical Record Present Illness HPI 87-year-old female presents ED for evaluation. Daughter at bedside states that patient has been increasingly more altered and lethargic the last few days. Was seen in PMD office yesterday and had a CT scan. Daughter does not know results of CT scan. States that patient gets like this every year and gets admitted. She does not know the reason why. Upon arrival patient showing no signs of distress. No reported fevers or chills. No shortness breath or chest pain. No other aggravating relieving factors. No other associated symptom Allergies: Coded Allergies: No Known Allergies (Verified , 08/15/11) Patient History Past Medical History: DM, HTN, dementia Social History: Denies: smoking, alcohol use, drug use Now: No Immunizations: UTD Reviewed Nursing Documentation: PMH: Agreed, PSxH: Agreed Nursing Documentation-PMH Hx Cardiac Problems: Yes Hx Hypertension: Yes Hx Pacemaker: No - VASCULAR DEMENTIA Hx Diabetes: Yes - per daughter, have problems with high and low blood sugar Hx Cancer: No Hx Gastrointestinal Problems: Yes Hx Neurological Problems: Yes Hx Dementia: Yes Review of Systems All Other Systems: limited Physical Exam Vital Signs Date Time Temp Pulse Resp B/P (MAP) Pulse Ox O2 Delivery O2 Flow Rate FiO2 06/21/17 12:36 96.4 81 11 139/66 96 Room Air Sp02 EP Interpretation: reviewed, normal General Appearance: no apparent distress, non-toxic, lethargic Head: normocephalic, atraumatic Eyes: bilateral eye normal inspection, bilateral eye PERRL ENT: hearing grossly normal, normal pharynx, no angioedema, normal voice Neck: full range of motion, supple/symm/no masses Respiratory: chest non-tender, lungs clear, normal breath sounds, speaking full sentences Cardiovascular #1: regular rate, rhythm, no edema Cardiovascular #2: 2+ carotid (R), 2+ carotid (L), 2+ radial (R), 2+ radial (L) , 2+ dorsalis pedis (R), 2+ dorsalis pedis (L) Gastrointestinal: normal bowel sounds, non tender, soft, non-distended, no guarding, no rebound Rectal: deferred Genitourinary: normal inspection, no CVA tenderness Musculoskeletal: back normal, gait/station normal, normal range of motion, non- tender Neurologic: other - lethargic Psychiatric: other - lethargic Reflexes: 3+ bicep (R), 3+ bicep (L), 3+ tricep (R), 3+ tricep (L), 3+ knee (R) , 3+ knee (L) Skin: normal color, no rash, warm/dry, well hydrated Lymphatic: no adenopathy Medical Decision Making Diagnostic Impression: Primary Impression: Altered level of consciousness Additional Impression: generalized weakness ER Course Hospital Course 87-year-old female presents to ED with increased lethargy times one day Differential diagnoses include: SD/unstable angina, arrythmia, dehydration, CVA/ TIA Clinical course Patient placed on stretcher. on sox analyst. After initial history and physical I ordered labs, EKG, chest x-ray, IVFs, CT Brain labs reviewed- no leukocytosis, hemoglobin/hematocrit ok, electrolytes okay, troponins negative, UA negative EKG- NSR, twave inversions in lateral leads interpreted by me Chest x-ray- no acute process CT scan of the head performed yesterday was unremarkable for any acute process Discussed findings with daughter. agrees to admission Case discussed with Dr. Wyatt and he agreed to accept the patient to his service for further care and support I. I feel this is a highly complex case requiring extensive working including EKG/Rhythm strip, Xray/CT/US, Blood/urine lab work, repeat exams while in ED, and administration of strong opiates/narcotics for pain control, admission to hospital or close patient follow up. Diagnosis - ALOC, generalized weakness admitted to floor in serious condition Labs Test 06/21/17 12:35 06/21/17 13:14 White Blood Count 4.9 K/UL (4.8-10.8) Red Blood Count 4.04 M/UL (4.20-5.40) Hemoglobin 12.1 G/DL (12.0-16.0) Hematocrit 38.0 % (37.0-47.0) Mean Corpuscular Volume 94 FL (80-99) Mean Corpuscular Hemoglobin 30.0 PG (27.0-31.0) Mean Corpuscular Hemoglobin Concent 31.9 G/DL (32.0-36.0) Red Cell Distribution Width 14.1 % (11.6-14.8) Platelet Count 107 K/UL (150-450) Mean Platelet Volume 9.2 FL (6.5-10.1) Neutrophils (%) (Auto) 57.3 % (45.0-75.0) Lymphocytes (%) (Auto) 29.3 % (20.0-45.0) Monocytes (%) (Auto) 12.7 % (1.0-10.0) Eosinophils (%) (Auto) 0.0 % (0.0-3.0) Basophils (%) (Auto) 0.6 % (0.0-2.0) Sodium Level 140 MMOL/L (136-145) Potassium Level 4.8 MMOL/L (3.5-5.1) Chloride Level 105 MMOL/L (98-107) Carbon Dioxide Level 32 MMOL/L (21-32) Anion Gap 3 mmol/L (5-15) Blood Urea Nitrogen 24 mg/dL (7-18) Creatinine 1.3 MG/DL (0.55-1.30) Estimat Glomerular Filtration Rate mL/min (>60) Glucose Level 77 MG/DL (74-106) Lactic Acid Level 1.00 mmol/L (0.66-2.22) Calcium Level 9.9 MG/DL (8.5-10.1) Total Bilirubin 0.3 MG/DL (0.2-1.0) Aspartate Amino Transf (AST/SGOT) 31 U/L (15-37) Alanine Aminotransferase (ALT/SGPT) 30 U/L (12-78) Alkaline Phosphatase 95 U/L (46-116) Total Creatine Kinase 228 U/L (26-308) Creatine Kinase MB 4.4 NG/ML (0.0-3.6) Creatine Kinase MB Relative Index 1.9 Troponin I 0.022 ng/mL (0.000-0.056) Pro-B-Type Natriuretic Peptide 606 pg/mL (0-125) Total Protein 8.1 G/DL (6.4-8.2) Albumin 3.3 G/DL (3.4-5.0) Globulin 4.8 g/dL Albumin/Globulin Ratio 0.7 (1.0-2.7) Urine Color Pale yellow Urine Appearance Clear Urine pH 8 (4.5-8.0) Urine Specific [place] 1.010 (1.005-1.035) Urine Protein Negative (NEGATIVE) Urine Glucose (UA) Negative (NEGATIVE) Urine Ketones Negative (NEGATIVE) Urine Occult Blood Negative (NEGATIVE) Urine Nitrite Negative (NEGATIVE) Urine Bilirubin Negative (NEGATIVE) Urine Urobilinogen Normal MG/DL (0.0-1.0) Urine Leukocyte Esterase 1+ (NEGATIVE) Urine RBC 2-4 /HPF (0 - 2) Urine WBC 2-4 /HPF (0 - 2) Urine Squamous Epithelial Cells Few /LPF (NONE/OCC) Urine Bacteria Occasional /HPF (NONE) EKG Diagnostic Results Rate: normal Rhythm: NSR ST Segments: other - twave inversions in lateral leads ASA given to the pt in ED: No Rhythm Strip Diag. Results EP Interpretation: yes Rhythm: NSR, no PVC's, no ectopy Chest X-Ray Diagnostic Results Chest X-Ray Diagnostic Results : Chest X-Ray Ordered: Yes # of Views/Limited/Complete: 1 View Indication: Other - ams EP Interpretation: Yes Interpretation: no consolidation, no effusion, no pneumothorax, no acute cardiopulmonary disease Impression: No acute disease Electronically Signed by: Electronically signed by Ion Yen MD Last Vital Signs Date Time Temp Pulse Resp B/P (MAP) Pulse Ox O2 Delivery O2 Flow Rate FiO2 06/21/17 14:07 97.9 74 12 133/60 94 Room Air Status: improved Disposition: ADMITTED INPATIENT Condition: Serious Referrals: MARY ALICE WYATT (PCP) ION YEN M.D. Jun 21, 2017 14:34
[2017-06-21 15:01] VITALS: BP 136/59
[2017-06-21 16:20] VITALS: BP 132/68
[2017-06-21] MEDS: HydrALAZINE 25mg tab ORAL SCH ×2 (18:00→18:14)
--- NOTE | 2017-06-21 19:00 | Diagnostic Imaging Report ---
Indication: Altered mental status Technique: XRAY CHEST 1 V Comparison: 08/23/16 Findings: Heart size and mediastinal contours are within normal limits given technique. There is no focal consolidation, pneumothorax or pleural effusion. Osseous structures demonstrate no acute abnormality. Impression: No radiographic evidence of acute cardiopulmonary disease.
[2017-06-21 20:00] VITALS: BP 136/77
[2017-06-21] MEDS: Heparin 5000 units/ml inj SUBQ SCH (21:00)
[2017-06-21] MEDS ORDERED: Heparin 5000 units/ml inj SUBQ SCH (21:00)
[2017-06-22] VITALS: BP 133/84
[2017-06-22 04:00] VITALS: BP 122/73
[2017-06-22] MEDS: HydrALAZINE 25mg tab ORAL SCH ×5 (06:30→23:52)
[2017-06-22 08:03] VITALS: BP 131/63
[2017-06-22] MEDS: Heparin 5000 units/ml inj SUBQ SCH ×2 (09:00→21:00)
[2017-06-22] MEDS: Aspirin Baby 81mg ORAL SCH (09:00)
--- NOTE | 2017-06-22 09:48 | History & Physical ---
History and Physical History & Physicial REASON FOR ADMISSION: Altered mental status. HISTORY: 87-year-old female with generalized weakness, overall with increasing restlessness and listlessness. The patient's daughter had brought her in for laboratory work and urinary evaluation, and underwent a head CT without acute changes. Daughter was concerned and brought her to the ER. She is confused, but does have dementia which appears to have progressed. The patient apparently became more lethargic, more altered, and was brought into the emergency room, and was brought in by her daughter. No other associated symptoms. The patient is seen and evaluated in the emergency room. Workup thus far is fairly negative The patient is cared for by her daughter PAST MEDICAL HISTORY: diabetes, hypertension, dementia. PAST SURGICAL HISTORY: None. FAMILY HISTORY: Otherwise noncontributory. SOCIAL HISTORY: Nonsmoker and nondrinker. Retired, unemployed, disabled. Lives with daughter who is the primary caregiver. REVIEW OF SYSTEMS: Difficult to obtain at this time. PHYSICAL EXAMINATION: Well-developed female NAD HEENT: Fairly negative. Extraocular movements are grossly intact. Pupils are equal. NECK: Supple. No adenopathy. LUNGS: Good air entry. Symmetric. No rhonchi or wheezing. CARDIAC: S1 and S2. Regular rate and rhythm. Positive S4. No murmurs or rubs. ABDOMEN: Soft, nontender, and nondistended. no HSM EXTREMITIES: No cyanosis, clubbing or edema. NEUROLOGICAL: Appears to be grossly nonfocal. confused and weak LABORATORY DATA: Labs Test 06/21/17 12:35 06/21/17 13:14 White Blood Count 4.9 K/UL (4.8-10.8) Red Blood Count 4.04 M/UL (4.20-5.40) Hemoglobin 12.1 G/DL (12.0-16.0) Hematocrit 38.0 % (37.0-47.0) Mean Corpuscular Volume 94 FL (80-99) Mean Corpuscular Hemoglobin 30.0 PG (27.0-31.0) Mean Corpuscular Hemoglobin Concent 31.9 G/DL (32.0-36.0) Red Cell Distribution Width 14.1 % (11.6-14.8) Platelet Count 107 K/UL (150-450) Mean Platelet Volume 9.2 FL (6.5-10.1) Neutrophils (%) (Auto) 57.3 % (45.0-75.0) Lymphocytes (%) (Auto) 29.3 % (20.0-45.0) Monocytes (%) (Auto) 12.7 % (1.0-10.0) Eosinophils (%) (Auto) 0.0 % (0.0-3.0) Basophils (%) (Auto) 0.6 % (0.0-2.0) Sodium Level 140 MMOL/L (136-145) Potassium Level 4.8 MMOL/L (3.5-5.1) Chloride Level 105 MMOL/L (98-107) Carbon Dioxide Level 32 MMOL/L (21-32) Anion Gap 3 mmol/L (5-15) Blood Urea Nitrogen 24 mg/dL (7-18) Creatinine 1.3 MG/DL (0.55-1.30) Estimat Glomerular Filtration Rate mL/min (>60) Glucose Level 77 MG/DL (74-106) Lactic Acid Level 1.00 mmol/L (0.66-2.22) Calcium Level 9.9 MG/DL (8.5-10.1) Total Bilirubin 0.3 MG/DL (0.2-1.0) Aspartate Amino Transf (AST/SGOT) 31 U/L (15-37) Alanine Aminotransferase (ALT/SGPT) 30 U/L (12-78) Alkaline Phosphatase 95 U/L (46-116) Total Creatine Kinase 228 U/L (26-308) Creatine Kinase MB 4.4 NG/ML (0.0-3.6) Creatine Kinase MB Relative Index 1.9 Troponin I 0.022 ng/mL (0.000-0.056) Pro-B-Type Natriuretic Peptide 606 pg/mL (0-125) Total Protein 8.1 G/DL (6.4-8.2) Albumin 3.3 G/DL (3.4-5.0) Globulin 4.8 g/dL Albumin/Globulin Ratio 0.7 (1.0-2.7) Urine Color Pale yellow Urine Appearance Clear Urine pH 8 (4.5-8.0) Urine Specific [place] 1.010 (1.005-1.035) Urine Protein Negative (NEGATIVE) Urine Glucose (UA) Negative (NEGATIVE) Urine Ketones Negative (NEGATIVE) Urine Occult Blood Negative (NEGATIVE) Urine Nitrite Negative (NEGATIVE) Urine Bilirubin Negative (NEGATIVE) Urine Urobilinogen Normal MG/DL (0.0-1.0) Urine Leukocyte Esterase 1+ (NEGATIVE) Urine RBC 2-4 /HPF (0 - 2) Urine WBC 2-4 /HPF (0 - 2) Urine Squamous Epithelial Cells Few /LPF (NONE/OCC) Urine Bacteria Occasional /HPF (NONE) IMPRESSION: Wfzoz-wo-kzcwcya encephalopathy. Known history of dementia. diabetes. hypertension. failure to thrive PLAN maintain meds pt and speech MRI brain DVT prophylaxis monitor exam d/w daughter and update impression, plan, and exam edited and reviewed in detail care discussed with MARY ALICE GALEANA Jun 22, 2017 09:48
--- NOTE | 2017-06-22 11:41 | Neurology Progress Note ---
Interim History Review of Systems Neuro Review of Systems # [id number] Objective Physical Exam Last Vital Signs Date Time Temp Pulse Resp B/P (MAP) Pulse Ox O2 Delivery O2 Flow Rate FiO2 06/22/17 10:02 Room Air 06/22/17 09:00 131/63 06/22/17 09:00 88 06/22/17 08:03 97.7 19 97 Laboratory Tests Test 06/21/17 12:35 06/21/17 13:14 White Blood Count 4.9 K/UL (4.8-10.8) Red Blood Count 4.04 M/UL (4.20-5.40) L Hemoglobin 12.1 G/DL (12.0-16.0) Hematocrit 38.0 % (37.0-47.0) Mean Corpuscular Volume 94 FL (80-99) Mean Corpuscular Hemoglobin 30.0 PG (27.0-31.0) Mean Corpuscular Hemoglobin Concent 31.9 G/DL (32.0-36.0) L Red Cell Distribution Width 14.1 % (11.6-14.8) Platelet Count 107 K/UL (150-450) L Mean Platelet Volume 9.2 FL (6.5-10.1) Neutrophils (%) (Auto) 57.3 % (45.0-75.0) Lymphocytes (%) (Auto) 29.3 % (20.0-45.0) Monocytes (%) (Auto) 12.7 % (1.0-10.0) H Eosinophils (%) (Auto) 0.0 % (0.0-3.0) Basophils (%) (Auto) 0.6 % (0.0-2.0) Sodium Level 140 MMOL/L (136-145) Potassium Level 4.8 MMOL/L (3.5-5.1) Chloride Level 105 MMOL/L (98-107) Carbon Dioxide Level 32 MMOL/L (21-32) Anion Gap 3 mmol/L (5-15) L Blood Urea Nitrogen 24 mg/dL (7-18) H Creatinine 1.3 MG/DL (0.55-1.30) Estimat Glomerular Filtration Rate mL/min (>60) Glucose Level 77 MG/DL (74-106) Lactic Acid Level 1.00 mmol/L (0.66-2.22) Calcium Level 9.9 MG/DL (8.5-10.1) Total Bilirubin 0.3 MG/DL (0.2-1.0) Aspartate Amino Transf (AST/SGOT) 31 U/L (15-37) Alanine Aminotransferase (ALT/SGPT) 30 U/L (12-78) Alkaline Phosphatase 95 U/L (46-116) Total Creatine Kinase 228 U/L (26-308) Creatine Kinase MB 4.4 NG/ML (0.0-3.6) H Creatine Kinase MB Relative Index 1.9 Troponin I 0.022 ng/mL (0.000-0.056) Pro-B-Type Natriuretic Peptide 606 pg/mL (0-125) H Total Protein 8.1 G/DL (6.4-8.2) Albumin 3.3 G/DL (3.4-5.0) L Globulin 4.8 g/dL Albumin/Globulin Ratio 0.7 (1.0-2.7) L Urine Color Pale yellow Urine Appearance Clear Urine pH 8 (4.5-8.0) Urine Specific [place] 1.010 (1.005-1.035) Urine Protein Negative (NEGATIVE) Urine Glucose (UA) Negative (NEGATIVE) Urine Ketones Negative (NEGATIVE) Urine Occult Blood Negative (NEGATIVE) Urine Nitrite Negative (NEGATIVE) Urine Bilirubin Negative (NEGATIVE) Urine Urobilinogen Normal MG/DL (0.0-1.0) Urine Leukocyte Esterase 1+ (NEGATIVE) H Urine RBC 2-4 /HPF (0 - 2) H Urine WBC 2-4 /HPF (0 - 2) Urine Squamous Epithelial Cells Few /LPF (NONE/OCC) Urine Bacteria Occasional /HPF (NONE) Impression/Recommendations Recommendations #[id number] OLEGARIO BAUMAN Jun 22, 2017 11:41
[2017-06-22 11:49] VITALS: BP 124/61
[2017-06-22 13:04] LABS: AMMONIA 34 umol/L (11-32)
[2017-06-22 13:06] LABS: CHOLESTEROL 248 MG/DL (< 200); VALPROIC ACID 6 MCG/ML (50-100)
[2017-06-22 16:00] VITALS: BP 152/76
--- NOTE | 2017-06-22 17:00 | Consultation ---
DATE OF CONSULTATION: 06/22/2017 NEUROLOGICAL CONSULTATION CONSULTING PHYSICIAN: Ihsan Muñoz M.D. REFERRING PHYSICIAN: Srini Wyatt M.D. HISTORY OF PRESENT ILLNESS: This is an 87-year-old female, seen in neurological consultation. The patient was brought from home, unable to provide any history. This was obtained from medical records as well as from her family. She became increasingly lethargic in the last few days. CAT scan of the brain was obtained. This revealed no acute abnormality. The patient was brought to emergency room where her vital signs remained stable. Blood pressure 139/66, heart rate 81, and temperature 96.4 degrees. She is currently not in acute distress, nontoxic, but lethargic. Her initial diagnostic studies included CBC, which was unremarkable except platelets of 107,000. Chemistry panel with BUN of 24, CK-MB 4.4, and CPK 228. Normal troponin and BNP of 606. Her urinalysis was unremarkable. Chest x-ray, no acute cardiopulmonary disease noted. Since admission until present, the patient remained lethargic, although this started in the morning briefly, becoming agitated, shouting, and screaming, and continuing to be asleep, at times moaning or groaning. Her EKG, normal sinus rhythm. The patient was started on IV fluids, maintained on cardiac monitoring, and Neurology consult was requested. The patient known is to me from a previous assessment for somewhat similar condition in August of this year. Her workup at that time included a CAT scan of the brain, which was negative, but also EEG, which revealed mild encephalopathy. The patient was rehydrated with condition gradually improved. So, she went home. She was taken home in stable condition. PAST MEDICAL HISTORY: The patient has a history of progressive dementia. She has hypertension and diabetes. MEDICATIONS: Treatment prior to admission included amlodipine, aspirin, Depakote 250 mg b.i.d., enalapril, and hydralazine. No sedatives were given. Since admission, she remained on IV fluids, but also she is NPO. No medications were taken. SOCIAL HISTORY: She lives with her family. There is no evidence of alcohol or drug abuse. Nonsmoker. FAMILY HISTORY: Noncontributory. REVIEW OF SYMPTOMS: Unable to obtain due to the patient's status. PHYSICAL EXAMINATION: GENERAL: A well-developed, well-nourished lady, who appears to be asleep, lying comfortably in bed. VITAL SIGNS: Remained stable. Blood pressure 130/63 and temperature 97.7 degrees. HEENT: Head, normocephalic. Eyes, ears, and throat are clear. NECK: Somewhat rigid. MUSCULOSKELETAL: Examination was unremarkable with no deformities. Peripheral pulses 1+ and symmetric. MENTAL STATUS: The patient is unarousable. On vigorous stimulation, she moans and groans, but does not open eyes. She mumbles incoherently and continues sleeping. CRANIAL NERVES II: Pupils 2 mm, responding to light and accommodation. Extraocular movements full range. Fundi unable to visualize. CRANIAL NERVES V: Normal corneal responses. CRANIAL NERVES VII: No gross asymmetry. CRANIAL NERVES VIII: Grossly normal. CRANIAL NERVES IX THROUGH XII: Tongue is in midline. Positive gag responses. MOTOR EXAMINATION: Diffuse rigidity in all limbs, but appears to be symmetric. Briefly able to maintain arms against the gravity. Deep tendon reflexes depressed bilaterally. Plantar response is flexor. No pathological responses. The patient was withdrawing both legs during stimulation. SENSORY EXAM: No response to pin stimulation. IMPRESSION: 1. Progressive lethargy, undetermined etiology, rule out drug-induced (Depakote), rule out nonconvulsive seizure activity, rule out dehydration. 2. Vascular dementia, advanced. 3. Hypertension. 4. Diabetes type 2. RECOMMENDATION: Get EEG. MRI of the brain was ordered. Laboratory work will include ammonia level, sedimentation rate, GINI, B12, folate, thyroid function, vitamin D and vitamin E levels. The patient will continue with the current treatment, hold Depakote until blood level obtained. Continue with hydration, maintain NPO due to high risk of aspiration. Thank you for allowing me to see this interesting patient in neurological consultation. Ihsan Muñoz M.D. DR: Maurice JOB#: [id number] CC:
[2017-06-22 20:00] VITALS: BP 138/65
[2017-06-23 00:34] VITALS: BP 135/70
[2017-06-23 04:41] VITALS: BP 134/79
[2017-06-23] MEDS: HydrALAZINE 25mg tab ORAL SCH ×3 (05:28→18:09)
[2017-06-23 08:14] VITALS: BP 131/72
[2017-06-23] MEDS: Aspirin Baby 81mg ORAL SCH (08:28)
[2017-06-23] MEDS: Heparin 5000 units/ml inj SUBQ SCH ×2 (08:31→21:00)
--- NOTE | 2017-06-23 10:40 | General Progress Note ---
Assessment/Plan Assessment/Plan IMPRESSION: Bvpdw-yx-cibjvoz encephalopathy. Known history of dementia. diabetes. hypertension. failure to thrive, concern for aspiration elevated ESR PLAN maintain meds pt and ot and speech video swallow MRI brain DVT prophylaxis monitor exam check labs ordered by neuro d/w daughter and update impression, plan, and exam edited and reviewed in detail care discussed with RN Subjective Allergies: Coded Allergies: No Known Allergies (Verified , 08/15/11) Subjective care noted and reviewed no change neuro appreciated Objective Last 24 Hour Vital Signs Date Time Temp Pulse Resp B/P (MAP) Pulse Ox O2 Delivery O2 Flow Rate FiO2 06/23/17 08:28 131/72 06/23/17 08:28 79 131/72 06/23/17 08:14 98.4 79 20 131/72 94 06/23/17 05:28 134/79 06/23/17 04:42 Room Air 06/23/17 04:41 98.1 72 19 134/79 97 06/23/17 00:35 Room Air 06/23/17 00:34 98.2 85 17 135/70 92 06/22/17 23:52 135/70 06/22/17 20:00 96.5 79 19 138/65 94 06/22/17 20:00 Room Air 06/22/17 17:33 152/76 06/22/17 16:00 97.3 72 18 152/76 96 Room Air 06/22/17 12:00 Room Air 06/22/17 12:00 124/61 06/22/17 11:49 99.1 72 19 124/61 97 Intake and Output 06/23/17 06/24/17 19:00 07:00 Intake Total 200 ml Balance 200 ml Intake Oral 200 ml # Voids 2 Laboratory Tests 06/22/17 12:37: Erythrocyte Sedimentation Rate 74H, Ammonia 34H, Triglycerides Level 40, Cholesterol Level 248H, LDL Cholesterol 102H, HDL Cholesterol 127H, Cholesterol/ HDL Ratio 2.0L, Vitamin B12 Level 1063H, Vitamin D 25-Hydroxy [Pending], 25- Hydroxy Vitamin D2 [Pending], 25-Hydroxy Vitamin D3 [Pending], Valproic Acid ( Depakene) Level 6L 06/22/17 17:50: Anti-Nuclear Antibody Screen [Pending] Height (Feet): 5 Height (Inches): 2.00 Weight (Pounds): 165 Objective WDWN NAD clear breath sounds bilaterally without rhonchi or wheeze [id number] without MRG NABS nontender no HSM no CC edema weak and confused overall MARY ALICE ESPINO Jun 23, 2017 10:40
[2017-06-23 11:56] VITALS: BP 124/73
[2017-06-23 15:44] VITALS: BP 117/58
[2017-06-23 20:30] VITALS: BP 147/74
[2017-06-24] VITALS: BP 157/76
[2017-06-24] MEDS: HydrALAZINE 25mg tab ORAL SCH ×4 (00:23→18:45)
[2017-06-24 04:00] VITALS: BP 146/78
--- NOTE | 2017-06-24 08:50 | General Progress Note ---
Assessment/Plan Assessment/Plan IMPRESSION: Ylcuu-tr-yocxcdq encephalopathy. Known history of dementia. diabetes. hypertension. failure to thrive, concern for aspiration elevated ESR PLAN maintain meds pt and ot and speech video swallow MRI brain DVT prophylaxis monitor exam follow up labs d/w daughter and update- concern of poor po; would need GT if still wants full care impression, plan, and exam edited and reviewed in detail care discussed with RN Subjective ROS Limited/Unobtainable: Yes Allergies: Coded Allergies: No Known Allergies (Verified , 08/15/11) Subjective care noted and reviewed no change neuro appreciated reduced LOC Objective Last 24 Hour Vital Signs Date Time Temp Pulse Resp B/P (MAP) Pulse Ox O2 Delivery O2 Flow Rate FiO2 06/24/17 05:29 146/78 06/24/17 04:00 97.2 88 17 146/78 97 06/24/17 00:23 157/76 06/24/17 00:00 97.3 86 18 157/76 96 06/24/17 00:00 Room Air 06/23/17 20:30 94.5 73 17 147/74 96 06/23/17 20:00 Room Air 06/23/17 18:09 115/54 06/23/17 15:44 98.3 64 20 117/58 98 06/23/17 12:33 124/73 06/23/17 11:56 98.1 81 21 124/73 96 Height (Feet): 5 Height (Inches): 2.00 Weight (Pounds): 165 Objective WDWN NAD clear breath sounds bilaterally without rhonchi or wheeze [id number] without MRG NABS nontender no HSM no CC edema weak and confused overall MARY ALICE ESPINO Jun 24, 2017 08:50
[2017-06-24 09:00] VITALS: BP 138/90
[2017-06-24] MEDS: Heparin 5000 units/ml inj SUBQ SCH ×2 (09:00→21:00)
[2017-06-24] MEDS: Aspirin Baby 81mg ORAL SCH (10:00)
[2017-06-24 12:00] VITALS: BP 146/68
--- NOTE | 2017-06-24 14:28 | Diagnostic Imaging Report ---
Indication: Altered mental status and dementia Technique: sagittal T1 fast spin echo, axial T1 and T2 FLAIR PROPELLER, axial T2 FS PROPELLER, T2* GRE, axial diffusion weighted images, post contrast axial and coronal T1 FLAIR PROPELLER images. ADC and exponential ADC maps generated Comparison: 08/24/2016 limit exam. Also recent head CT 06/20/2016 Findings: There are prominent perivascular spaces in the basal ganglia and deep white matter. There is incidental finding of enlargement of the sella turcica filled with CSF, consistent with empty sella. No abnormal areas of restricted diffusion to suggest acute infarction. No acute hemorrhage or edema. No mass effect nor midline shift. No abnormal contrast enhancement. There is age-related enlargement of the ventricles and extra-axial CSF spaces. There is periventricular increased T2 signal, consistent with chronic ischemic change The vascular flow voids are preserved.. Is evidence of prior bilateral cataract surgery. Sinuses are unremarkable.. . Impression: Chronic and age-related changes, as described. Negative for acute intracranial bleed or mass effect, infarct, or contrast enhancing lesion
[2017-06-24 16:00] VITALS: BP 144/69
[2017-06-24 20:00] VITALS: BP 104/71
[2017-06-25 00:41] VITALS: BP 110/69
[2017-06-25 04:46] VITALS: BP 155/70
[2017-06-25] MEDS: HydrALAZINE 25mg tab ORAL SCH ×3 (05:56→11:55)
[2017-06-25 08:00] VITALS: BP 158/68
[2017-06-25] MEDS: Aspirin Baby 81mg ORAL SCH (08:29)
[2017-06-25] MEDS: Heparin 5000 units/ml inj SUBQ SCH (08:30)
--- NOTE | 2017-06-25 11:05 | General Progress Note ---
Assessment/Plan Assessment/Plan IMPRESSION: Oracd-bb-ogsexic encephalopathy. Known history of dementia. diabetes. hypertension. failure to thrive, concern for aspiration elevated ESR PLAN maintain meds swallow noted- adjust diet texture MRI brainnoted DVT prophylaxis monitor exam follow up labs d/w daughter and update- she notes she is eating well with encouragement- dc plan for today if she agrees impression, plan, and exam edited and reviewed in detail care discussed with RN Subjective Allergies: Coded Allergies: No Known Allergies (Verified , 08/15/11) Subjective care noted and reviewed no change neuro appreciated Improved LOC Objective Last 24 Hour Vital Signs Date Time Temp Pulse Resp B/P (MAP) Pulse Ox O2 Delivery O2 Flow Rate FiO2 06/25/17 08:29 158/70 06/25/17 08:28 72 158/70 06/25/17 08:00 97.2 72 19 158/68 95 Room Air 06/25/17 05:56 146/61 06/25/17 04:46 97.8 73 17 155/70 96 06/25/17 00:46 Room Air 06/25/17 00:41 97.5 70 18 110/69 95 06/25/17 00:00 110/69 06/24/17 20:00 Room Air 06/24/17 20:00 97.4 74 19 104/71 95 06/24/17 19:55 Room Air 06/24/17 18:45 139/68 06/24/17 16:00 97.1 69 19 144/69 94 06/24/17 12:00 97.0 77 18 146/68 97 Intake and Output 06/25/17 06/26/17 19:00 07:00 Intake Total 400 ml Balance 400 ml IV Total 400 ml Height (Feet): 5 Height (Inches): 2.00 Weight (Pounds): 165 Objective WDWN NAD clear breath sounds bilaterally without rhonchi or wheeze [id number] without MRG NABS nontender no HSM no CC edema weak and confused overall MARY ALICE ESPINO Jun 25, 2017 11:05
[2017-06-25 12:00] VITALS: BP 91/50
[2017-06-25 14:32] VITALS: BP 91/49
--- NOTE | 2017-06-26 09:59 | Diagnostic Imaging Report ---
Indications: Dysphagia Technique: Patient ingested multiple substances under the supervision of speech pathology. Video fluoroscopic recording performed. Total fluoroscopy time 233 seconds. Total dose area product 0.77598 mGycm2 Comparison: none Findings: The speech pathology report describes ingestion of thin and nectar thick liquid barium, but no images of such are available With honey thick liquid barium and barium puree, there is early pooling in the vallecula and piriform sinuses, some delay in initiation of dilatation, no aspiration or penetration. Impression: Limited exam, images of ingestion of thin and nectar thick liquid barium was not archived. Negative for aspiration or penetration of honey thick and barium puree Please refer to speech pathology report for more detailed analysis
--- NOTE | 2017-06-26 20:16 | Electroencephalogram ---
DATE OF PROCEDURE: 06/22/2017 PROCEDURE PERFORMED: Electroencephalography. READING PHYSICIAN: Ihsan Muñoz M.D. REQUESTING PHYSICIAN: Srini Wyatt M.D. HISTORY: This is an 87-year-old female with persistent dementia, diabetes, and hypertension, now presenting with persistent lethargy. Current treatment includes Norvasc, Depakote, and Vasotec. EEG was done using 18 electrodes placed scalp to scalp, scalp to ear montages according to 10/20 International System. Throughout the recording, background activity consists of intermittent irregular low to medium voltage mixture of 5-7 cycles per second bilaterally with occasional appearance of transients in 3-4 cycles. Epochs of overriding beta activities noted. There was no paroxysmal event. No spike or wave activities were noted. IMPRESSION: Abnormal EEG in presence of moderate diffuse slowing. COMMENT: Absence of paroxysmal event on a single recording does not rule out seizure disorder. Noted the above abnormality may indicate a diffuse structural abnormality, toxic metabolic derangement, and clinical correlation is necessary. Ihsan Muñoz M.D. DR: EDDIE JOB#: [id number] CC:
[2017-06-27 09:22] LABS: VITAMIN D 25-OH TOTAL 75 ng/mL (.)
--- NOTE | 2017-06-27 10:43 | Cardiology Report ---
APPROVED REPORT EKG Measurement Heart [id number] Normal sinus rhythm Abnormal ECG
--- NOTE | 2017-06-27 11:33 | Discharge Summary ---
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
--- NOTE | 2017-06-28 00:30 | Discharge Summary 2 SIG ---
DATE OF ADMISSION: 06/21/2017 DATE OF DISCHARGE: 06/25/2017 WIRE ROLLER: Ihsan Muñoz M.D. BRIEF HOSPITAL COURSE: The patient is an 87-year-old female with generalized weakness and overall increased restlessness and listlessness. The patient's daughter brought her in for a laboratory work and urinary evaluation. She underwent a head CT as outpatient without acute changes. However, the daughter was concerned and took her to ED as the patient was confused and apparently has become more lethargic and more altered. She has history of diabetes mellitus, hypertension, and dementia. On evaluation at ED, blood work showed no leukocytosis. Troponin was negative. Blood work was essentially unremarkable. EKG showed normal sinus rhythm with T-wave inversions in the lateral leads. Chest x-ray done showed no acute process. CT scan done the day prior was unremarkable. Due to progression of symptoms, the patient was admitted to medical floor for evaluation of weakness and encephalopathy. She was given PT and OT. She was initially placed on NPO and underwent a neurological evaluation with Dr. Muñoz. The patient was lethargic, however, was arousable. She was started on IV fluids. Depakote was initially placed on hold. Depakote level was checked and was 6. She underwent MRI of the brain that showed chronic age-related changes and negative for acute intracranial bleed or mass effect. No infarct or contrast enhancing lesion. She underwent an EEG that showed presence of moderate diffuse slowing which may indicate diffuse structural abnormality and toxic metabolic derangement. She eventually was less lethargic and underwent swallow evaluation. Video swallow done showed negative for aspiration. She was recommended soft finely chopped diet with thin liquids with strict aspiration precaution. She was eating well with encouragement. Care was discussed with the patient's daughter. She was given PT and OT and the patient was eventually discharged home with home health. FINAL DIAGNOSES: 1. Acute on chronic encephalopathy. 2. Dementia. 3. Diabetes mellitus. 4. Hypertension. 5. Failure to thrive. 6. High risk for aspiration. 7. Elevated erythrocyte sedimentation rate. 8. Progressive lethargy, undetermined etiology. 9. Vascular dementia, advanced. DISCHARGE DISPOSITION: The patient was discharged home with home health. DISCHARGE MEDICATIONS: Refer to medication list. FOLLOWUP: Follow up as outpatient in a week. Srini Wyatt M.D. I have been assigned to dictate discharge summary on this account and I was not involved in the patient's management. Vicki So N.P. DR: NAZ JOB#: [id number] CC: PETER
== END 2017-06-25 14:15 | disposition home or self-care (01) | DRG 72 ==
LOC: EMR 12:58 → 3E 13:24 → EDBEDREQ 13:32 → 3E 15:19
DX: G93.40 Encephalopathy, unspecified (principal); E11.9 Type 2 diabetes mellitus without complications; F01.50 Vascular dementia, unspecified severity, without behavioral disturbance, psychotic disturbance, mood disturbance, and anxiety; I10 Essential (primary) hypertension; R62.7 Adult failure to thrive
CPT/HCPCS: 36415; 70450; 70553; 71010; 74230; 80053; 80061; 80164; 81003; 82140; 82306; 82550; 82553; 82607; 83605; 83880; 84484; 85025; 85651; 86039; 87040; 93005; 95819; 99285; A9585

== ENCOUNTER 2017-10-10 11:50 | Inpatient (IN) | payer MEDICARE, MEDICAID ==
[~2017-10-10] VITALS: Ht 160 cm; Wt 76.7 kg
[~2017-10-10 11:50] MED LIST changes: +AMLODIPINE-ATO1 EAC4 ORAL; +DIVALPROEX SOD250 MG PO; +HYDRALAZINE HCL25 M2 PO
--- NOTE | 2017-10-10 11:57 | Emergency Room Report ---
History of Present Illness General Chief Complaint: altered mental status Source: Family Member Present Illness HPI Patient is 87-year-old female brought in by daughter after increased altered mental status. Patient prior history dementia. Patient was noted to have increased tearfulness. Patient was ordered normally ambulatory with walker. The patient noted have increased confusion. She had not been noted to have any fever. The patient was normal prior to waking this morning. She had similar episodes in the past. Allergies: Coded Allergies: No Known Allergies (Verified , 08/15/11) Patient History Reviewed Nursing Documentation: PMH: Agreed; PSxH: Agreed Nursing Documentation-PMH Hx Cardiac Problems: No Hx Hypertension: Yes Hx Pacemaker: No - VASCULAR DEMENTIA Hx Diabetes: Yes - per daughter, have problems with high and low blood sugar Hx Cancer: No Hx Gastrointestinal Problems: No Hx Neurological Problems: No Hx Dementia: Yes Hx Weakness: Yes Review of Systems All Other Systems: limited - by mental status Physical Exam Sp02 EP Interpretation: reviewed, normal General Appearance: alert, mild distress, obese, Chronically Ill Head: atraumatic ENT: normal ENT inspection, hearing grossly normal, normal voice Neck: normal inspection, full range of motion, supple, no bony tend Respiratory: normal inspection, lungs clear, normal breath sounds, no respiratory distress, no retraction, no wheezing Cardiovascular #1: regular rate, rhythm, edema Gastrointestinal: normal inspection, normal bowel sounds, non tender, soft, no guarding, no hernia Genitourinary: no CVA tenderness Musculoskeletal: normal inspection, back normal, normal range of motion Neurologic: normal inspection, alert, responsive, other - incomprehensible sounds Psychiatric: normal inspection, mood/affect normal, anxious Skin: normal inspection, normal color, no rash Medical Decision Making Diagnostic Impression: Primary Impression: Altered level of consciousness Additional Impressions: Hyperkalemia Pleural effusion Pneumonia ER Course Patient presented for altered mental status.Differential diagnosis included but was not limited to ischemic stroke, subarachnoid hemorrhage, hypoglycemia, spinal cord injury, neurodegenerative disorder, urinary tract infection, hypoxemia. The patient was noted to have evidence of the pneumonia on chest CT. She was noted to have bilateral pleural effusions. Laboratory to studies showed evidence of hyperkalemia with potassium 5.8. Patient was given IV Lasix. CT head read by radiology showed atrophic changesDrBinh EdgarSrininithin Wyatt was contacted for inpatient management. Labs Test 10/10/17 12:36 10/10/17 13:00 10/10/17 13:16 Prothrombin Time 11.1 SEC (9.30-11.50) Prothromb Time International Ratio 1.1 (0.9-1.1) Activated Partial Thromboplast Time 20 SEC (23-33) Sodium Level 142 MMOL/L (136-145) Potassium Level 5.8 MMOL/L (3.5-5.1) Chloride Level 107 MMOL/L (98-107) Carbon Dioxide Level 30 MMOL/L (21-32) Anion Gap 5 mmol/L (5-15) Blood Urea Nitrogen 32 mg/dL (7-18) Creatinine 1.1 MG/DL (0.55-1.30) Estimat Glomerular Filtration Rate mL/min (>60) Glucose Level 83 MG/DL (74-106) Lactic Acid Level 1.00 mmol/L (0.66-2.22) Calcium Level 9.7 MG/DL (8.5-10.1) Phosphorus Level 3.2 MG/DL (2.5-4.9) Magnesium Level 2.0 MG/DL (1.8-2.4) Total Bilirubin 0.3 MG/DL (0.2-1.0) Aspartate Amino Transf (AST/SGOT) 51 U/L (15-37) Alanine Aminotransferase (ALT/SGPT) 30 U/L (12-78) Alkaline Phosphatase 92 U/L (46-116) Total Creatine Kinase 145 U/L (26-308) Creatine Kinase MB 3.5 NG/ML (0.0-3.6) Creatine Kinase MB Relative Index 2.4 Troponin I 0.000 ng/mL (0.000-0.056) Pro-B-Type Natriuretic Peptide 478 pg/mL (0-125) Total Protein 7.6 G/DL (6.4-8.2) Albumin 2.9 G/DL (3.4-5.0) Globulin 4.7 g/dL Albumin/Globulin Ratio 0.6 (1.0-2.7) White Blood Count 7.2 K/UL (4.8-10.8) Red Blood Count 3.35 M/UL (4.20-5.40) Hemoglobin 10.4 G/DL (12.0-16.0) Hematocrit 31.1 % (37.0-47.0) Mean Corpuscular Volume 93 FL (80-99) Mean Corpuscular Hemoglobin 31.0 PG (27.0-31.0) Mean Corpuscular Hemoglobin Concent 33.4 G/DL (32.0-36.0) Red Cell Distribution Width 14.9 % (11.6-14.8) Platelet Count 94 K/UL (150-450) Mean Platelet Volume 8.3 FL (6.5-10.1) Neutrophils (%) (Auto) % (45.0-75.0) Lymphocytes (%) (Auto) % (20.0-45.0) Monocytes (%) (Auto) % (1.0-10.0) Eosinophils (%) (Auto) % (0.0-3.0) Basophils (%) (Auto) % (0.0-2.0) Differential Total Cells Counted 100 Neutrophils % (Manual) 65 % (45-75) Lymphocytes % (Manual) 26 % (20-45) Monocytes % (Manual) 9 % (1-10) Eosinophils % (Manual) 0 % (0-3) Basophils % (Manual) 0 % (0-2) Band Neutrophils 0 % (0-8) Platelet Estimate Decreased Platelet Morphology Normal Hypochromasia 1+ Anisocytosis 1+ Urine Color Pale yellow Urine Appearance Clear Urine pH 6 (4.5-8.0) Urine Specific Kinde 1.010 (1.005-1.035) Urine Protein Negative (NEGATIVE) Urine Glucose (UA) Negative (NEGATIVE) Urine Ketones Negative (NEGATIVE) Urine Occult Blood Negative (NEGATIVE) Urine Nitrite Negative (NEGATIVE) Urine Bilirubin Negative (NEGATIVE) Urine Urobilinogen Normal MG/DL (0.0-1.0) Urine Leukocyte Esterase Negative (NEGATIVE) EKG Diagnostic Results Rate: normal Rhythm: NSR ST Segments: other - peaked twaves Status: unchanged Disposition: ADMITTED INPATIENT Easton Tripp Oct 10, 2017 11:57
[2017-10-10] MEDS ORDERED: REMERON15 M1 ORAL (12:06)
[2017-10-10 12:09] VITALS: BP 122/69
[2017-10-10 13:10] LABS: INR 1.1 (0.9-1.1)
[2017-10-10 13:20] LABS: HEMATOCRIT 31.1 % (37.0-47.0); HEMOGLOBIN 10.4 G/DL (12.0-16.0); MEAN CORPUSCULAR VOLUME 93 FL (80-99); PLATELET COUNT 94 K/UL (150-450); RED BLOOD COUNT 3.35 M/UL (4.20-5.40); RED CELL DISTRIBUTION WIDTH 14.9 % (11.6-14.8); WHITE BLOOD COUNT 7.2 K/UL (4.8-10.8)
[2017-10-10 13:33] LABS: APPEARANCE,URINE CLEAR; BILIRUBIN, URINE NEGATIVE (NEGATIVE); COLOR,URINE PALE YELLOW; GLUCOSE, URINE (UA) NEGATIVE (NEGATIVE); KETONES,URINE NEGATIVE (NEGATIVE); LEUKOCYTE ESTERASE ,URINE NEGATIVE (NEGATIVE); NITRITE,URINE NEGATIVE (NEGATIVE); PH,URINE 6 (4.5-8.0); PROTEIN,URINE NEGATIVE (NEGATIVE); UROBILINOGEN,URINE NORMAL MG/DL (0.0-1.0)
[2017-10-10 13:33] LABS: ANION GAP 5 mmol/L (5-15); BLOOD UREA NITROGEN 32 mg/dL (7-18); CALCIUM 9.7 MG/DL (8.5-10.1); CARBON DIOXIDE 30 MMOL/L (21-32); CHLORIDE 107 MMOL/L (98-107); CREATININE 1.1 MG/DL (0.55-1.30); POTASSIUM 5.8 MMOL/L (3.5-5.1); SODIUM 142 MMOL/L (136-145)
[2017-10-10 13:40] LABS: ALANINE AMINOTRANSFERASE 30 U/L (12-78); ALBUMIN 2.9 G/DL (3.4-5.0); ALBUMIN/GLOBULIN RATIO 0.6 (1.0-2.7); ALKALINE PHOSPHATASE 92 U/L (46-116); ASPARTATE AMINO TRANSFERASE 51 U/L (15-37); BILIRUBIN,TOTAL 0.3 MG/DL (0.2-1.0); CKMB 3.5 NG/ML (0.0-3.6); CREATINE KINASE 145 U/L (26-308); PHOSPHORUS 3.2 MG/DL (2.5-4.9)
[2017-10-10] MEDS ORDERED: Azithromycin 500mg Inj IV ONE (14:13)
[2017-10-10] MEDS ORDERED: Azithromycin 500 MG in D5W 275 ML IVPB ONE (14:15)
[2017-10-10] MEDS ORDERED: cefTRIAXone 1 GM in D5W 55 ML IVPB ONE (14:15)
--- NOTE | 2017-10-10 14:52 | Diagnostic Imaging Report ---
Indications: Altered mental status Technique: Spiral acquisitions obtained through the brain. Angled axial and coronal 5 x 5 mm slices were reconstructed. Total dose length product 1404.24 mGycm. CTDI vol(s) 70.38 mGy. Dose reduction achieved using automated exposure control Comparison: 06/20/2017 Findings: Again demonstrated is age-related enlargement of the ventricles and extra axial CSF spaces. Again demonstrated is periventricular deep white matter low-attenuation, consistent with chronic ischemic change. A lacunar infarct is seen in the left bush radiata, not definitely evident previously, although probably not acute. Old lacunar infarcts are also seen in the left thalamus and the right lentiform nucleus. No acute intracranial hemorrhage or edema. No mass effect nor midline shift. The sinuses are clear. There is evidence of prior bilateral cataract surgery. The mastoids are clear. Intact calvarium Impression: Negative for acute intracranial bleed or mass effect Chronic and age-related changes as described Left bush radiata lacunar infarct, new since 06/20/2017; acuity indeterminate but suspect not acute. MRI may be useful to clarify if clinically indicated Other old lacunar infarcts in the bilateral basal ganglia The CT scanner at [facility] is accredited by the [employer] and the scans are performed using protocols designed to limit radiation exposure to as low as reasonably achievable to attain images of sufficient resolution adequate for diagnostic evaluation.
--- NOTE | 2017-10-10 14:59 | Diagnostic Imaging Report ---
Indication: Abdominal pain Technique: Spiral acquisitions obtained through the abdomen and pelvis. No oral contrast utilized, per emergency room physician request No IV contrast utilized, for over zero physician request.. Multiplanar reconstructions were generated. Total dose length product 1021.54 mGycm. CTDIvol(s) 19.75 mGy. Dose reduction achieved using automated exposure control Comparison: None Findings: Lack of enteric contrast limits assessment of the GI tract. There is slight inflammation of the perianal fat. No evidence of diverticulosis or diverticulitis. The appendix is normal. No small bowel distention. No free or loculated intraperitoneal air or fluid is evident. The distal esophagus, stomach, duodenum are unremarkable. Lack of IV contrast limits assessment of the solid organs. The liver, gallbladder, bile ducts, pancreas, spleen, adrenals, kidneys are all unremarkable. The bladder is distended. Uterus demonstrates arcuate artery calcifications. Left adnexa demonstrates a calcification. Uterus and adnexal structures are otherwise unremarkable. No pelvic mass or adenopathy. Diastasis and deformity of the pubic symphysis with apparent heterotopic ossification within the soft tissues between the medial pubic bones is noted. There is considerable degenerative change of the bilateral sacroiliac joints. There is mild degenerative spondylosis of the lower lumbar spine There are bilateral small pleural effusions, right greater than left, and considerable basilar atelectasis as well as possibly mild pulmonary edema. The heart is enlarged. Impression: Slight inflammation of the perianal fat, could indicate mild proctitis. Correlate for findings No acute abdominal pelvic abnormality otherwise Markedly distended bladder Bilateral small pleural effusions, right greater than left Bilateral basilar pulmonary parenchymal atelectasis as well as mild pulmonary edema Cardiomegaly Abnormal appearance of the pubic symphysis, as described. Of uncertain significance but suspect chronic The CT scanner at [facility] is accredited by the [employer] and the scans are performed using protocols designed to limit radiation exposure to as low as reasonably achievable to attain images of sufficient resolution adequate for diagnostic evaluation.
--- NOTE | 2017-10-10 15:00 | Diagnostic Imaging Report ---
Indication: Shortness of breath, cough Technique: One view of the chest Comparison: 07/03/2017 Findings: The heart is enlarged. There is mild interstitial edema. There are atelectatic changes at both lung bases. Impression: Cardiomegaly Mild pulmonary interstitial edema
[2017-10-10 15:01] VITALS: BP 143/66
[2017-10-10] MEDS ORDERED: Albuterol ud Inhalation HHN PRN (15:45)
[2017-10-10] MEDS ORDERED: Milk of Magnesia 30ml Ud ORAL PRN (15:45)
[2017-10-10 17:20] VITALS: BP 122/65
[2017-10-10] MEDS: HydrALAZINE 25mg tab ORAL SCH ×2 (17:52→18:27)
[2017-10-10 20:00] VITALS: BP 118/56
[2017-10-10] MEDS ORDERED: Nail Polish Remover TOPIC ONE (20:00)
[2017-10-10] MEDS ORDERED: Heparin 5000 units/ml inj SUBQ SCH ×2 (21:00)
[2017-10-10] MEDS ORDERED: Sodium Polystyrene Sulfonate 15gm Powder ORAL ONE (23:30)
[2017-10-11] VITALS: BP 140/72
--- NOTE | 2017-10-11 00:46 | History and Physical Report ---
DATE OF ADMISSION: 10/10/2017 REASON FOR CONSULTATION AND ADMISSION: Possible pneumonia and altered mental status. HISTORY OF PRESENT ILLNESS: The patient is an 87-year-old female, worsening confusion and agitation, difficulty with sleep. The patient has worsening dementia overall. The patient also appears to be somewhat withdrawn and depressed. The patient less ambulatory than prior. The patient was brought in by her daughter, who is her primary caregiver. The patient was noted to have vague pulmonary changes and pleural effusion noted on x-ray. The patient has had no significant shortness of breath. She was noted to have possible pneumonia versus pulmonary edema. She was given a dose of Lasix. The patient was also noted to have electrolyte imbalance and was treated accordingly. The patient's findings discussed and reviewed. The patient is now readmitted to telemetry floor for ongoing management and intervention. The patient did not have any potassium replacements at this time. The care discussed and reviewed. The patient has some issues with dementia and the patient is taking Remeron for sleep and ongoing confusion and agitation. PAST MEDICAL HISTORY: Notable for dementia, COPD, pulmonary hypertension, urinary incontinence, back pain, prior CVA with lacunar infarcts, anemia, left ventricular hypertrophy, and prior history of syncope. MEDICATIONS: Reviewed. ALLERGIES: Reviewed. SOCIAL HISTORY: She lives with her daughter. Nonsmoker and nondrinker. Retired. REVIEW OF SYSTEMS: Unobtainable due to the patient's present state. PHYSICAL EXAMINATION: GENERAL: A well-developed female, somewhat confused. VITAL SIGNS: Blood pressure 126/64, pulse 87, respirations 18, temperature 97.5, and sats 95% on room air. HEENT: Negative. Extraocular movements are grossly intact. NECK: Supple. LUNGS: Fairly clear. No crackles in the bases. CARDIAC: S1 and S2. Regular rate and rhythm. Soft systolic murmur at the parasternal border. No rubs or gallops. ABDOMEN: Soft, nontender, and nondistended. EXTREMITIES: No cyanosis or clubbing. There is trace edema. LABORATORY DATA: Noted and reviewed. Notable for fairly normal labs except for potassium 5.8, BUN 32. BNP 478. White count 7.2, hematocrit 31, and platelets 94. IMPRESSION: Possible proctitis, although the patient is currently asymptomatic, multiple lacunar infarcts, dementia of progressive disease, urinary incontinence, possible pneumonia, pulmonary edema, elevated potassium of unclear significance, anemia, and thrombocytopenia. RECOMMENDATIONS: Supportive care. Monitor labs. Hold on heparin with noted thrombocytopenia. Hold on further diuresis and provide some IV hydration with evidence of acute renal failure. Monitor labs. Monitor potassium. Monitor x-ray for changes and ongoing interventions. The patient's care was discussed and reviewed. We will follow closely. Code status to be addressed. Srini Wyatt M.D. DR: MERON JOB#: [id number] CC: PETER
[2017-10-11 04:00] VITALS: BP 146/71
[2017-10-11] MEDS ORDERED: Sodium Polystyrene Sulfonate Enema RECTAL ONE (06:00)
[2017-10-11 07:14] LABS: HEMATOCRIT 31.3 % (37.0-47.0); HEMOGLOBIN 9.6 G/DL (12.0-16.0); MEAN CORPUSCULAR VOLUME 94 FL (80-99); PLATELET COUNT 90 K/UL (150-450); RED BLOOD COUNT 3.33 M/UL (4.20-5.40); RED CELL DISTRIBUTION WIDTH 15.1 % (11.6-14.8); WHITE BLOOD COUNT 4.1 K/UL (4.8-10.8)
[2017-10-11] MEDS: LORazepam Inj 2mg/ml 1ml IV PRN ×2 (07:29→16:02)
[2017-10-11 07:40] LABS: ANION GAP 5 mmol/L (5-15); BLOOD UREA NITROGEN 25 mg/dL (7-18); CALCIUM 8.7 MG/DL (8.5-10.1); CARBON DIOXIDE 33 MMOL/L (21-32); CHLORIDE 109 MMOL/L (98-107); SODIUM 147 MMOL/L (136-145)
[2017-10-11 08:00] VITALS: BP 128/64
[2017-10-11] MEDS: HydrALAZINE 25mg tab ORAL SCH ×3 (08:26→17:03)
--- NOTE | 2017-10-11 08:42 | General Progress Note ---
Assessment/Plan Assessment/Plan IMPRESSION: Possible proctitis, although the patient is currently asymptomatic, multiple lacunar infarcts, dementia of progressive disease, urinary incontinence, possible pneumonia, pulmonary edema, elevated potassium of unclear significance, anemia, and thrombocytopenia. PLAN care noted psych care IV antibiotics PT d/w daughter impression, plan, and exam edited and reviewed in detail care discussed with RN Subjective Allergies: Coded Allergies: No Known Allergies (Verified , 08/15/11) Subjective very agitated overnight care noted Objective Last 24 Hour Vital Signs Date Time Temp Pulse Resp B/P (MAP) Pulse Ox O2 Delivery O2 Flow Rate FiO2 10/11/17 08:28 84 128/68 10/11/17 08:26 128/68 10/11/17 04:00 95.9 71 20 146/71 99 Room Air 95.9 10/11/17 04:00 63 10/11/17 00:00 64 10/11/17 00:00 96.3 61 20 140/72 97 Room Air 96.3 10/10/17 20:00 68 10/10/17 20:00 98.6 79 20 118/56 94 Room Air 98.6 10/10/17 18:27 122/65 10/10/17 17:20 60 18 122/65 95 Room Air 10/10/17 15:18 72 10/10/17 15:18 97.5 77 18 126/64 95 Room Air 97.5 10/10/17 15:01 97.5 77 18 143/66 95 Room Air 97.5 10/10/17 12:09 97.5 22 122/69 95 Room Air 97.5 10/10/17 11:55 97.6 76 22 122/69 95 Room Air 97.5 Intake and Output 10/10/17 10/11/17 19:00 07:00 Intake Total 300 ml 1221 ml Output Total 450 ml Balance 300 ml 771 ml Intake Oral 200 ml 25 ml IV Total 100 ml 1196 ml Output Urine Total 450 ml # Voids 1 Laboratory Tests 10/10/17 12:36: Prothrombin Time 11.1, Prothromb Time International Ratio 1.1, Activated Partial Thromboplast Time 20L, Sodium Level 142, Potassium Level 5.8H, Chloride Level 107, Carbon Dioxide Level 30, Anion Gap 5, Blood Urea Nitrogen 32H, Creatinine 1.1, Estimat Glomerular Filtration Rate , Glucose Level 83, Lactic Acid Level 1.00, Calcium Level 9.7, Phosphorus Level 3.2, Magnesium Level 2.0, Total Bilirubin 0.3, Aspartate Amino Transf (AST/SGOT) 51H, Alanine Aminotransferase (ALT/SGPT) 30, Alkaline Phosphatase 92, Total Creatine Kinase 145, Creatine Kinase MB 3.5, Creatine Kinase MB Relative Index 2.4, Troponin I 0.000, Pro-B-Type Natriuretic Peptide 478H, Total Protein 7.6, Albumin 2.9L, Globulin 4.7, Albumin/Globulin Ratio 0.6L 10/10/17 13:00: White Blood Count 7.2, Red Blood Count 3.35L, Hemoglobin 10.4L, Hematocrit 31.1L , Mean Corpuscular Volume 93, Mean Corpuscular Hemoglobin 31.0, Mean Corpuscular Hemoglobin Concent 33.4, Red Cell Distribution Width 14.9H, Platelet Count 94L, Mean Platelet Volume 8.3, Neutrophils (%) (Auto) , Lymphocytes (%) (Auto) , Monocytes (%) (Auto) , Eosinophils (%) (Auto) , Basophils (%) (Auto) , Differential Total Cells Counted 100, Neutrophils % ( Manual) 65, Lymphocytes % (Manual) 26, Monocytes % (Manual) 9, Eosinophils % ( Manual) 0, Basophils % (Manual) 0, Band Neutrophils 0, Platelet Estimate DecreasedL, Platelet Morphology Normal, Hypochromasia 1+, Anisocytosis 1+ 10/10/17 13:16: Urine Color Pale yellow, Urine Appearance Clear, Urine pH 6, Urine Specific Rock[place] 1.010, Urine Protein Negative, Urine Glucose (UA) Negative, Urine Ketones Negative, Urine Occult Blood Negative, Urine Nitrite Negative, Urine Bilirubin Negative, Urine Urobilinogen Normal, Urine Leukocyte Esterase Negative 10/10/17 21:35: Valproic Acid (Depakene) Level 26L 10/11/17 06:25: White Blood Count 4.1L, Red Blood Count 3.33L, Hemoglobin 9.6L, Hematocrit 31.3L , Mean Corpuscular Volume 94, Mean Corpuscular Hemoglobin 28.8, Mean Corpuscular Hemoglobin Concent 30.7L, Red Cell Distribution Width 15.1H, Platelet Count 90L, Mean Platelet Volume 7.1, Neutrophils (%) (Auto) , Lymphocytes (%) (Auto) , Monocytes (%) (Auto) , Eosinophils (%) (Auto) , Basophils (%) (Auto) , Differential Total Cells Counted 100, Neutrophils % ( Manual) 44L, Lymphocytes % (Manual) 46H, Monocytes % (Manual) 10, Eosinophils % (Manual) 0, Basophils % (Manual) 0, Band Neutrophils 0, Platelet Estimate DecreasedL, Platelet Morphology Normal, Hypochromasia 1+, Ovalocytes 1+, Sodium Level 147H, Potassium Level 4.0, Chloride Level 109H, Carbon Dioxide Level 33H, Anion Gap 5, Blood Urea Nitrogen 25H, Creatinine 1.0, Estimat Glomerular Filtration Rate , Glucose Level 67L, Calcium Level 8.7, Pro-B-Type Natriuretic Peptide 421H Height (Feet): 5 Height (Inches): 3.00 Weight (Pounds): 169 Objective GENERAL: A well-developed female, somewhat confused. HEENT: Negative. Extraocular movements are grossly intact. NECK: Supple. LUNGS: Fairly clear. No crackles in the bases. CARDIAC: S1 and S2. Regular rate and rhythm. Soft systolic murmur at the parasternal border. No rubs or gallops. ABDOMEN: Soft, nontender, and nondistended. EXTREMITIES: No cyanosis or clubbing. There is trace edema. agitated MARY ALICE ESPINO Oct 11, 2017 08:42
--- NOTE | 2017-10-11 08:49 | Diagnostic Imaging Report ---
APPROVED REPORT CPT Code: 56805 Present Symptoms Lower Extremity Pain: Bilateral RIGHT LEG: Venous imaging reveals a patent deep venous system. There is no evidence of thrombus within the femoral, popliteal or tibial segments. The greater saphenous vein is also within normal limits. Doppler indicates normal spontaneous flow within these segments. LEFT LEG: Venous imaging reveals recanalized chronic thrombus in the superficial femoral vein. Imaging also reveals patency of the common femoral, popliteal and calf veins. The greater saphenous vein is also within normal limits. Doppler indicates normal spontaneous flow within these segments. There is no evidence of acute deep vein thrombosis.
[2017-10-11 12:00] VITALS: BP 126/66
[2017-10-11] MEDS ORDERED: DiphenhydrAMINE 50mg/ml Inj IVP PRN (12:30)
--- NOTE | 2017-10-11 14:24 | Consultation ---
History of Present Illness General Date patient seen: Oct 11, 2017 Chief Complaint: Altered Level of Consciousness Present Illness HPI 87-year-old female,due to ams. the pt pw confusion and agitation, difficulty with sleep. The patient pw waxing and waning of consciousness. the pt has been yelling and attempting to come out of bed Allergies: Coded Allergies: No Known Allergies (Verified , 08/15/11) Medication History Scheduled Amlodipine-Atorvastatin 10-20 Mg (Amlodipine-Atorvastatin 10-20 Mg), 1 TAB ORAL DAILY, (Reported) Aspirin* (Aspir 81*), 81 MG ORAL DAILY, (Reported) Divalproex Sodium (Divalproex Sodium), 250 MG PO BID, (Reported) Enalapril Maleate* (Enalapril Maleate*), 10 MG ORAL DAILY, (Reported) Hydralazine HCl (Hydralazine HCl), 25 MG PO THREE TIMES A DAY, (Reported) Mirtazapine (Remeron), 15 MG ORAL BEDTIME, (Reported) Patient History Limited by: medical condition History Provided By: Patient, Medical Record, PMD Healthcare decision maker N Resuscitation status Advanced Directive on File No Past Medical/Surgical History Past Medical/Surgical History: (1) r/o seizure activity (2) Altered level of consciousness (3) Hyperkalemia (4) Pleural effusion (5) Pneumonia (6) Altered level of consciousness Review of Systems Psychiatric: Reports: prior hx, anxiety, depressed feelings, emotional problems Physical Exam General Appearance: no apparent distress, alert, confused, agitated Last 24 Hour Vital Signs Date Time Temp Pulse Resp B/P (MAP) Pulse Ox O2 Delivery O2 Flow Rate FiO2 10/11/17 12:51 135/87 10/11/17 12:00 68 10/11/17 12:00 96.1 68 18 126/66 94 Nasal Cannula 2.0 96.1 10/11/17 08:28 84 128/68 10/11/17 08:26 128/68 10/11/17 08:00 72 10/11/17 08:00 97.0 84 20 128/64 99 Room Air 97.0 10/11/17 04:00 95.9 71 20 146/71 99 Room Air 95.9 10/11/17 04:00 63 10/11/17 00:00 64 10/11/17 00:00 96.3 61 20 140/72 97 Room Air 96.3 10/10/17 20:00 68 10/10/17 20:00 98.6 79 20 118/56 94 Room Air 98.6 10/10/17 18:27 122/65 10/10/17 17:20 60 18 122/65 95 Room Air 10/10/17 15:18 72 10/10/17 15:18 97.5 77 18 126/64 95 Room Air 97.5 10/10/17 15:01 97.5 77 18 143/66 95 Room Air 97.5 Intake and Output 10/10/17 10/11/17 19:00 07:00 Intake Total 300 ml 1221 ml Output Total 450 ml Balance 300 ml 771 ml Intake Oral 200 ml 25 ml IV Total 100 ml 1196 ml Output Urine Total 450 ml # Voids 1 Laboratory Tests Test 10/10/17 21:35 10/11/17 06:25 Valproic Acid (Depakene) Level 26 MCG/ML (50-100) L White Blood Count 4.1 K/UL (4.8-10.8) L Red Blood Count 3.33 M/UL (4.20-5.40) L Hemoglobin 9.6 G/DL (12.0-16.0) L Hematocrit 31.3 % (37.0-47.0) L Mean Corpuscular Volume 94 FL (80-99) Mean Corpuscular Hemoglobin 28.8 PG (27.0-31.0) Mean Corpuscular Hemoglobin Concent 30.7 G/DL (32.0-36.0) L Red Cell Distribution Width 15.1 % (11.6-14.8) H Platelet Count 90 K/UL (150-450) L Mean Platelet Volume 7.1 FL (6.5-10.1) Neutrophils (%) (Auto) % (45.0-75.0) Lymphocytes (%) (Auto) % (20.0-45.0) Monocytes (%) (Auto) % (1.0-10.0) Eosinophils (%) (Auto) % (0.0-3.0) Basophils (%) (Auto) % (0.0-2.0) Differential Total Cells Counted 100 Neutrophils % (Manual) 44 % (45-75) L Lymphocytes % (Manual) 46 % (20-45) H Monocytes % (Manual) 10 % (1-10) Eosinophils % (Manual) 0 % (0-3) Basophils % (Manual) 0 % (0-2) Band Neutrophils 0 % (0-8) Platelet Estimate Decreased L Platelet Morphology Normal Hypochromasia 1+ Ovalocytes 1+ Sodium Level 147 MMOL/L (136-145) H Potassium Level 4.0 MMOL/L (3.5-5.1) Chloride Level 109 MMOL/L (98-107) H Carbon Dioxide Level 33 MMOL/L (21-32) H Anion Gap 5 mmol/L (5-15) Blood Urea Nitrogen 25 mg/dL (7-18) H Creatinine 1.0 MG/DL (0.55-1.30) Estimat Glomerular Filtration Rate mL/min (>60) Glucose Level 67 MG/DL (74-106) L Calcium Level 8.7 MG/DL (8.5-10.1) Pro-B-Type Natriuretic Peptide 421 pg/mL (0-125) H Height (Feet): 5 Height (Inches): 3.00 Weight (Pounds): 169 Medications Current Medications Medications (Trade) Dose Ordered Sig/Zeina Route PRN Reason Start Time Stop Time Status Last Admin Dose Admin Acetaminophen (Tylenol) 650 mg Q4H PRN ORAL Mild Pain/Temp > 100.5 10/10/17 15:45 11/09/17 15:44 Al Hydroxide/Mg Hydroxide (Mylanta) 30 ml Q4H PRN ORAL heartburn 10/10/17 15:45 11/09/17 15:44 Albuterol Sulfate (Proventil) 2.5 mg Q4H PRN HHN Shortness of Breath 10/10/17 15:45 10/15/17 15:44 Amlodipine Besylate (Norvasc) 10 mg DAILY ORAL 10/11/17 09:00 11/10/17 08:59 Ceftriaxone Sodium 1 gm/ Dextrose 110 ml @ 220 mls/hr Q24H IVPB 10/11/17 14:00 10/18/17 13:59 Diphenhydramine HCl (Benadryl) 25 mg Q6H PRN IVP Itching 10/11/17 12:30 11/10/17 12:29 Divalproex Sodium (Depakote) 250 mg EVERY 12 HOURS ORAL 10/10/17 21:00 11/09/17 20:59 10/10/17 21:30 Hydralazine HCl (Apresoline) 25 mg TID ORAL 10/10/17 18:00 11/09/17 17:59 10/10/17 18:27 Lorazepam (Ativan 2mg/ml 1ml) 0.5 mg Q4H PRN IV For Anxiety 10/11/17 07:05 10/18/17 07:04 10/11/17 07:29 Magnesium Hydroxide (Mom) 30 ml DAILYPRN PRN ORAL Constipation 10/10/17 15:45 11/09/17 15:44 Pantoprazole (Protonix) 40 mg DAILY ORAL 10/11/17 09:00 11/10/17 08:59 Sodium Chloride 1,000 ml @ 100 mls/hr Q10H IV 10/11/17 09:10 11/10/17 09:09 10/11/17 09:10 Assessment/Plan Status: unchanged Assessment/Plan dementia with behavioral dist encephalopathy -depakote -ativan prn -benadryl Bridgett Kang M.D. Oct 11, 2017 14:24
[2017-10-11] MEDS: cefTRIAXone 1 GM in D5W 110 ML IVPB SCH (15:13)
--- NOTE | 2017-10-11 15:28 | Diagnostic Imaging Report ---
Indication: Dyspnea Technique: XRAY Chest 1v Comparison: 10/10/2017 Findings: Limited exam with low lung volumes. Heart size and mediastinal contour stable. There is persistent interstitial opacification/edema. There is slight improvement of the previously seen opacities at the left base. No large pleural effusion. No pneumothorax. Osseous structures stable. Impression: Limited exam. Stable cardiomegaly with persistent interstitial opacification/edema. Left basilar atelectasis decreased.
[2017-10-11 16:00] VITALS: BP 156/89
[2017-10-11 20:00] VITALS: BP 139/72
[2017-10-12] VITALS: BP 135/63
[2017-10-12 04:00] VITALS: BP 149/74
[2017-10-12 08:00] VITALS: BP 139/61
[2017-10-12] MEDS: HydrALAZINE 25mg tab ORAL SCH ×3 (08:21→17:30)
[2017-10-12 10:20] LABS: ANION GAP 8 mmol/L (5-15); BLOOD UREA NITROGEN 16 mg/dL (7-18); CALCIUM 8.8 MG/DL (8.5-10.1); CARBON DIOXIDE 31 MMOL/L (21-32); CHLORIDE 110 MMOL/L (98-107); POTASSIUM 3.8 MMOL/L (3.5-5.1); SODIUM 148 MMOL/L (136-145)
[2017-10-12 12:00] VITALS: BP_SYST 138; BP_SYST 158; BP_DIAS 75
--- NOTE | 2017-10-12 12:43 | General Progress Note ---
Assessment/Plan Assessment/Plan IMPRESSION: Possible proctitis, although the patient is currently asymptomatic, multiple lacunar infarcts, dementia of progressive disease, urinary incontinence, possible pneumonia, pulmonary edema, elevated potassium of unclear significance, anemia, and thrombocytopenia. PLAN care noted psych care appreciated hypotonic fluids IV antibiotics PT d/w daughter and hope to proceed with dc impression, plan, and exam edited and reviewed in detail care discussed with RN Subjective Allergies: Coded Allergies: No Known Allergies (Verified , 08/15/11) Subjective less agitated overnight care noted psych appreciated Objective Last 24 Hour Vital Signs Date Time Temp Pulse Resp B/P (MAP) Pulse Ox O2 Delivery O2 Flow Rate FiO2 10/12/17 08:21 139/61 10/12/17 08:21 79 139/61 10/12/17 08:00 74 10/12/17 08:00 97.3 79 19 139/61 99 Nasal Cannula 2.0 97.3 10/12/17 04:00 80 10/12/17 04:00 98.6 80 20 149/74 97 Nasal Cannula 2.0 98.6 10/12/17 00:00 97.3 77 18 135/63 100 Nasal Cannula 2.0 97.3 10/12/17 00:00 77 10/11/17 20:00 97.7 74 20 139/72 99 Nasal Cannula 2.0 97.7 10/11/17 20:00 77 10/11/17 17:03 156/89 10/11/17 16:00 92.5 80 20 156/89 97 Nasal Cannula 2.0 92.5 10/11/17 16:00 79 10/11/17 12:51 135/87 Intake and Output 10/11/17 10/12/17 19:00 07:00 Intake Total 100 ml 1130 ml Output Total 1400 ml Balance 100 ml -270 ml IV Total 1130 ml Other 100 ml Output Urine Total 1400 ml # Voids 1 Laboratory Tests 10/12/17 08:50: Sodium Level 148H, Potassium Level 3.8, Chloride Level 110H, Carbon Dioxide Level 31, Anion Gap 8, Blood Urea Nitrogen 16, Creatinine 1.0, Estimat Glomerular Filtration Rate , Glucose Level 115H, Calcium Level 8.8 Height (Feet): 5 Height (Inches): 3.00 Weight (Pounds): 169 Objective GENERAL: A well-developed female, somewhat confused. but less agitated HEENT: Negative. Extraocular movements are grossly intact. NECK: Supple. LUNGS: Fairly clear. No crackles in the bases. moderate air entry CARDIAC: S1 and S2. Regular rate and rhythm. Soft systolic murmur at the parasternal border. No rubs or gallops. ABDOMEN: Soft, nontender, and nondistended. EXTREMITIES: No cyanosis or clubbing. There is trace edema. agitated MARY ALICE ESPINO Oct 12, 2017 12:43
[2017-10-12] MEDS: cefTRIAXone 1 GM in D5W 110 ML IVPB SCH (13:20)
[2017-10-12 16:00] VITALS: BP_SYST 102; BP_SYST 132; BP_DIAS 54; BP_DIAS 64
[2017-10-12 20:00] VITALS: BP 142/69
[2017-10-13] VITALS: BP 142/69
[2017-10-13] MEDS: LORazepam Inj 2mg/ml 1ml IV PRN (01:26)
[2017-10-13 04:00] VITALS: BP 153/76
[2017-10-13 08:00] VITALS: BP 147/75
[2017-10-13] MEDS: HydrALAZINE 25mg tab ORAL SCH ×4 (08:46→17:27)
[2017-10-13 09:46] LABS: ANION GAP 3 mmol/L (5-15); BLOOD UREA NITROGEN 23 mg/dL (7-18); CALCIUM 8.8 MG/DL (8.5-10.1); CARBON DIOXIDE 33 MMOL/L (21-32); CHLORIDE 109 MMOL/L (98-107); CREATININE 0.8 MG/DL (0.55-1.30); POTASSIUM 4.2 MMOL/L (3.5-5.1); SODIUM 145 MMOL/L (136-145)
[2017-10-13] MEDS ORDERED: 1/2 NS 1000ml IV ONE ×2 (10:18→13:55)
[2017-10-13] MEDS ORDERED: NS 275ml ONE (10:23)
--- NOTE | 2017-10-13 11:48 | General Progress Note ---
Assessment/Plan Assessment/Plan IMPRESSION: Possible proctitis, although the patient is currently asymptomatic, multiple lacunar infarcts, dementia of progressive disease, urinary incontinence, possible pneumonia, pulmonary edema, elevated potassium of unclear significance, anemia, and thrombocytopenia. PLAN care noted psych care appreciated hypotonic fluids- may dc IV antibiotics ? dc in am PT dc planning impression, plan, and exam edited and reviewed in detail care discussed with RN Subjective Allergies: Coded Allergies: No Known Allergies (Verified , 08/15/11) Subjective seems improved and calmer care noted psych noted Objective Last 24 Hour Vital Signs Date Time Temp Pulse Resp B/P (MAP) Pulse Ox O2 Delivery O2 Flow Rate FiO2 10/13/17 09:00 147/75 10/13/17 09:00 65 147/75 10/13/17 08:00 97.8 67 19 147/75 100 Nasal Cannula 2.0 97.8 10/13/17 08:00 65 10/13/17 04:00 97.0 70 16 153/76 100 Nasal Cannula 2.0 97.0 10/13/17 03:52 69 10/13/17 00:00 97.0 80 16 142/69 100 Nasal Cannula 2.0 97.0 10/12/17 23:58 83 10/12/17 20:00 97.0 76 16 142/69 98 97.0 10/12/17 19:52 73 10/12/17 17:30 132/64 10/12/17 16:00 68 10/12/17 16:00 97.3 74 18 132/64 100 Nasal Cannula 2.0 97.3 10/12/17 13:20 138/75 10/12/17 12:00 80 10/12/17 12:00 97.3 74 21 138/75 98 Nasal Cannula 2.0 97.3 Intake and Output 10/12/17 10/13/17 19:00 07:00 Intake Total 1635 ml 1158.3 ml Output Total 1000 ml Balance 1635 ml 158.3 ml Intake Oral 425 ml IV Total 1210 ml 1158.3 ml Output Urine Total 1000 ml # Bowel Movements 2 Laboratory Tests 10/13/17 08:30: Sodium Level 145, Potassium Level 4.2, Chloride Level 109H, Carbon Dioxide Level 33H, Anion Gap 3L, Blood Urea Nitrogen 23H, Creatinine 0.8, Estimat Glomerular Filtration Rate , Glucose Level 74, Calcium Level 8.8 Height (Feet): 5 Height (Inches): 3.00 Weight (Pounds): 169 Objective GENERAL: A well-developed female, somewhat confused. but less agitated HEENT: Negative. Extraocular movements are grossly intact. NECK: Supple. LUNGS: Fairly clear. No crackles in the bases. moderate air entry CARDIAC: S1 and S2. Regular rate and rhythm. Soft systolic murmur at the parasternal border. No rubs or gallops. ABDOMEN: Soft, nontender, and nondistended. EXTREMITIES: No cyanosis or clubbing. There is trace edema. MARY ALICE Mckeon Oct 13, 2017 11:48
[2017-10-13 12:00] VITALS: BP 155/71
[2017-10-13] MEDS: cefTRIAXone 1 GM in D5W 110 ML IVPB SCH (13:34)
[2017-10-13] MEDS ORDERED: Flumazenil 1mg/10ml Inj IV ONE (14:55)
[2017-10-13 15:38] VITALS: BP 145/67
[2017-10-13 20:00] VITALS: BP 144/62
[2017-10-14] VITALS: BP 161/67
[2017-10-14 04:00] VITALS: BP 176/88
[2017-10-14 08:00] VITALS: BP 137/61
[2017-10-14] MEDS: HydrALAZINE 25mg tab ORAL SCH ×2 (08:59→14:00)
[2017-10-14 12:00] VITALS: BP 129/56
--- NOTE | 2017-10-14 13:55 | General Progress Note ---
Assessment/Plan Assessment/Plan IMPRESSION: Possible proctitis, although the patient is currently asymptomatic, multiple lacunar infarcts, dementia of progressive disease, urinary incontinence, possible pneumonia, pulmonary edema, elevated potassium of unclear significance, anemia, and thrombocytopenia. hypercapnia PLAN outpatient sleep study care noted psych care appreciated dc planning to home with hh impression, plan, and exam edited and reviewed in detail care discussed with RN Subjective Allergies: Coded Allergies: No Known Allergies (Verified , 08/15/11) Subjective seems improved and calmer care noted psych noted d/w daughter will take her home Objective Last 24 Hour Vital Signs Date Time Temp Pulse Resp B/P (MAP) Pulse Ox O2 Delivery O2 Flow Rate FiO2 10/14/17 12:00 75 10/14/17 12:00 97.5 70 18 129/56 92 Room Air 97.5 10/14/17 08:59 137/61 10/14/17 08:59 71 137/61 10/14/17 08:00 97.3 71 18 137/61 99 Nasal Cannula 2.0 97.3 10/14/17 08:00 71 10/14/17 04:45 68 10/14/17 04:00 97.7 75 18 176/88 99 Nasal Cannula 2.0 97.7 10/14/17 00:02 63 10/14/17 00:00 96.8 67 20 161/67 99 Nasal Cannula 2.0 96.8 10/13/17 20:00 97.2 65 18 144/62 99 Nasal Cannula 2.0 97.2 10/13/17 19:07 62 10/13/17 17:27 145/67 10/13/17 16:00 58 10/13/17 15:38 98.1 61 19 145/67 100 Nasal Cannula 2.0 98.1 Intake and Output 10/13/17 10/14/17 19:00 07:00 Intake Total 410 ml 928.49 ml Output Total 1850 ml 1775 ml Balance -1440 ml -846.51 ml IV Total 410 ml 928.49 ml Output Urine Total 1850 ml 1775 ml # Voids 4 Laboratory Tests 10/13/17 14:40: Arterial Blood pH 7.400, Arterial Blood Partial Pressure CO2 50.4H, Arterial Blood Partial Pressure O2 108.9H, Arterial Blood HCO3 30.6H, Arterial Blood Oxygen Saturation 96.6, Arterial Blood Base Excess 5.0, Eber Test Positive Height (Feet): 5 Height (Inches): 3.00 Weight (Pounds): 169 Objective GENERAL: A well-developed female, somewhat confused. but less agitated HEENT: Negative. Extraocular movements are grossly intact. NECK: Supple. LUNGS: Fairly clear. No crackles in the bases. moderate air entry CARDIAC: S1 and S2. Regular rate and rhythm. Soft systolic murmur at the parasternal border. No rubs or gallops. ABDOMEN: Soft, nontender, and nondistended. EXTREMITIES: No cyanosis or clubbing. There is trace edema. MARY ALICE Mckeon Oct 14, 2017 13:55
[2017-10-14 14:00] VITALS: BP 129/56
[2017-10-14] MEDS: cefTRIAXone 1 GM in D5W 110 ML IVPB SCH (14:00)
--- NOTE | 2017-10-14 22:33 | General Progress Note ---
Assessment/Plan Assessment/Plan dementia with behavioral dist encephalopathy -depakote -ativan prn -benadryl prn Subjective Date patient seen: Oct 14, 2017 Neurologic/Psychiatric: Reports: anxiety, depressed, emotional problems Allergies: Coded Allergies: No Known Allergies (Verified , 08/15/11) Objective Last 24 Hour Vital Signs Date Time Temp Pulse Resp B/P (MAP) Pulse Ox O2 Delivery O2 Flow Rate FiO2 10/14/17 14:00 129/56 10/14/17 12:00 75 10/14/17 12:00 97.5 70 18 129/56 92 Room Air 97.5 10/14/17 08:59 137/61 10/14/17 08:59 71 137/61 10/14/17 08:00 97.3 71 18 137/61 99 Nasal Cannula 2.0 97.3 10/14/17 08:00 71 10/14/17 04:45 68 10/14/17 04:00 97.7 75 18 176/88 99 Nasal Cannula 2.0 97.7 10/14/17 00:02 63 10/14/17 00:00 96.8 67 20 161/67 99 Nasal Cannula 2.0 96.8 Intake and Output 10/13/17 10/14/17 19:00 07:00 Intake Total 410 ml 928.49 ml Output Total 1850 ml 1775 ml Balance -1440 ml -846.51 ml IV Total 410 ml 928.49 ml Output Urine Total 1850 ml 1775 ml # Voids 4 Height (Feet): 5 Height (Inches): 3.00 Weight (Pounds): 169 General Appearance: no apparent distress, alert, confused, agitated Bridgett Porter M.D. Oct 14, 2017 22:33
--- NOTE | 2017-10-14 22:34 | Psych Consult Progress Note ---
Psych Consult Progress Note Consult 10/13/17 the pt less agitated and confused. stable dementia with behavioral dist encephalopathy -depakote -ativan prn -benadryl prn Vital Signs Last 24 Hour Vital Signs Date Time Temp Pulse Resp B/P (MAP) Pulse Ox O2 Delivery O2 Flow Rate FiO2 10/14/17 14:00 129/56 10/14/17 12:00 75 10/14/17 12:00 97.5 70 18 129/56 92 Room Air 97.5 10/14/17 08:59 137/61 10/14/17 08:59 71 137/61 10/14/17 08:00 97.3 71 18 137/61 99 Nasal Cannula 2.0 97.3 10/14/17 08:00 71 10/14/17 04:45 68 10/14/17 04:00 97.7 75 18 176/88 99 Nasal Cannula 2.0 97.7 10/14/17 00:02 63 10/14/17 00:00 96.8 67 20 161/67 99 Nasal Cannula 2.0 96.8 Bridgett Porter M.D. Oct 14, 2017 22:34
--- NOTE | 2017-10-14 22:35 | Psych Consult Progress Note ---
Psych Consult Progress Note Consult 10/12/17 the pt is less agitated and more manageable dementia with behavioral dist encephalopathy -depakote -ativan prn -benadryl prn Vital Signs Last 24 Hour Vital Signs Date Time Temp Pulse Resp B/P (MAP) Pulse Ox O2 Delivery O2 Flow Rate FiO2 10/14/17 14:00 129/56 10/14/17 12:00 75 10/14/17 12:00 97.5 70 18 129/56 92 Room Air 97.5 10/14/17 08:59 137/61 10/14/17 08:59 71 137/61 10/14/17 08:00 97.3 71 18 137/61 99 Nasal Cannula 2.0 97.3 10/14/17 08:00 71 10/14/17 04:45 68 10/14/17 04:00 97.7 75 18 176/88 99 Nasal Cannula 2.0 97.7 10/14/17 00:02 63 10/14/17 00:00 96.8 67 20 161/67 99 Nasal Cannula 2.0 96.8 Bridgett Porter M.D. Oct 14, 2017 22:35
--- NOTE | 2017-10-15 14:46 | Discharge Summary ---
Discharge Summary Discharge Summary Discharge Summary DATE OF ADMISSION: 10/10/2017 DATE OF DISCHARGE: 10/14/2017 REASON FOR ADMISSION: 87-year-old female,with past medical history of dementia, COPD, pulmonary hypertension, urinary incontinence, back pain, prior CVA with lacunar infarcts, anemia, left ventricular hypertrophy, and prior history of syncope, presented with worsening confusion and agitation, difficulty with sleep. The patient had worsening dementia overall. The patient also appeared to be somewhat withdrawn and depressed. The patient less ambulatory than prior. The patient was brought in by her daughter, who is her primary' caregiver. The patient was noted to have vague pulmonary changes and pleural effusion noted on x-ray. The patient has had no significant shortness of breath. She was noted to have possible pneumonia versus pulmonary edema. She was given a dose of Lasix. The patient was also noted to have electrolyte imbalance with K-5.8 and was treated accordingly. Platelet count-94, BUN-[address] head revealed no acute intracranial pathology. Left bush radiata lacunar infarct, new since 06/20/2017; acuity indeterminate but was suspected not acute. Other old lacunar infarcts in the bilateral basal ganglia CT of the abdomen demonstrated slight inflammation of the perianal fat, possibly indicative for mild proctitis. Bilateral small pleural effusions, right greater than left Bilateral basilar pulmonary parenchymal atelectasis as well as mild pulmonary edema Venous duplex bilateral lower extremities revealed no evidence of acute DVT. It did demonstrated chronic thrombosis left lower extremity. Patient was admitted with altered level of consciousness, hyperkalemia, pulmonary edema, possible pneumonia, possible mild proctitis (although the patient was asymptomatic), multiple lacunar infarcts, dementia of progressive disease, urinary incontinence, possible pneumonia, anemia, and thrombocytopenia. HOSPITAL COURSE: Patient admitted to telemetry floor. Patient started on empiric antibiotic for presumptive pneumonia. Supplemental oxygen provided as needed to keep pulse oximetry above 92%. Pulmonary toilet provided as needed. Blood cultures were negative. Follow-up chest x-ray revealed stable findings with slightly improved left sided opacity. No pneumothorax, no large pleural effusion. Patient status post treatment with antibiotic. Respiratory status was stable prior to discharge. No further diuresis was done. Patient was started on gentle IV hydration. Renal parameters and electrolytes were closely monitor, electrolytes were corrected as needed, nephrotoxics were avoided. BUN from initial 32 down to 23. Despite findings of possible mild proctitis on CT of the abdomen and pelvic, patient remained asymptomatic. GI prophylaxis provided. Bowel regimen instituted. Patient was able tolerate diet and had bowel movement. Blood pressure was managed with calcium channel lukas and hydralazine. Statin was continued. Heparin was stopped secondary to thrombocytopenia. Platelet count was closely monitored. Hemoglobin and hematocrit remained stable, on the baseline. 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 Psychiatrist seen and evaluated the patient , and diagnosed patient with dementia with behavioral disturbances and encephalopathy. Psychiatrist optimized psychiatric medication regimen. Patient was stable for discharge home with home health services. FINAL DIAGNOSES: 1. Possible mild prostatitis, asymptomatic. 2. Altered level of consciousness secondary to encephalopathy. 3. Hyperkalemia, resolved 4. Possible pneumonia, status post treatment. 5. Pulmonary edema. 6. Multiple lacunar infarcts. 7. Dementia of progressive disease 8. Dementia with behavioral disturbances. 9. Urinary incontinence. 10.Anemia. 11.Thrombocytopenia DISCHARGE MEDICATIONS: See Medication Reconciliation list. DISCHARGE INSTRUCTIONS: Patient was discharged home with home health. Recommended outpatient sleep study Follow up with primary care provider I have been assigned to dictate discharge summary for this account. I was not involved in the patient's management. Damon AllanSally kohli NP Oct 15, 2017 14:46
== END 2017-10-14 15:10 | disposition home health service (06) | DRG 193 ==
LOC: EMR 12:22 → 2E 12:25 → EDBEDREQ 12:37 → 2E 19:22
DX: J18.9 Pneumonia, unspecified organism (principal); G93.40 Encephalopathy, unspecified; F03.91 Unspecified dementia, unspecified severity, with behavioral disturbance; D69.6 Thrombocytopenia, unspecified; K62.89 Other specified diseases of anus and rectum; Z86.73 Personal history of transient ischemic attack (TIA), and cerebral infarction without residual deficits; I27.20 Pulmonary hypertension, unspecified; R32 Unspecified urinary incontinence; E87.5 Hyperkalemia; J44.9 Chronic obstructive pulmonary disease, unspecified
CPT/HCPCS: 36415; 36600; 70450; 71045; 74176; 80048; 80053; 80164; 81003; 82550; 82553; 82803; 82962; 83605; 83735; 83880; 84100; 84484; 85007; 85025; 85610; 85730; 87040; 93005; 93970; 99285